=== PATIENT | female | born 1950 | race African-American/Black ===

== ENCOUNTER 2017-04-22 09:30 | Inpatient (IN) ==
[2017-04-22] MEDS ORDERED: GLUCAGON 1 MG VIAL IM PRN (09:42)
[2017-04-22] MEDS ORDERED: ONDANSETRON 4 MG/2 ML VIAL IV PRN (09:42)
[2017-04-22] MEDS ORDERED: DEXTROSE 50% 25 GM/50 ML SYRINGE IV PRN (09:42)
[2017-04-22] MEDS ORDERED: ZALEPLON 5 MG CAPSULE PO PRN (09:42)
[2017-04-22] MEDS ORDERED: DOCUSATE SODIUM 100 MG CAPSULE PO PRN (09:42)
--- NOTE | 2017-04-22 11:39 | Ultrasound Report ---
Venous Doppler ultrasound bilateral lower extremities Indication: Edema, pulmonary hypertension Comparison: None available Findings: No evidence of echogenic, noncompressible thrombus seen in the visualized veins of the extremities. Color Doppler venous waveform pattern is within normal limits. Impression: No evidence of deep venous thrombosis. Ultrasound images stored and captured. PROCEDURE INTERPRETED AT [facility] Final Report Signed by: Dr. Reji Jay
--- NOTE | 2017-04-22 12:53 | EKG Report ---
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
[2017-04-22] MEDS ORDERED: PNEUMOCOCCAL VACCINE (13 VALENT) 0.5 ML SYRINGE IM ONE (12:59)
--- NOTE | 2017-04-22 13:11 | XRay Report ---
2 view chest 04/22/2017 9:44 AM Indication: Shortness of breath Comparison: July 29, 2010 1855 hours Findings: Heart size is enlarged. Prominence of the central pulmonary vasculature and pulmonary outflow tracts. No acute osseous abnormalities. Visualized upper abdomen demonstrates no acute pathology. Impression: Findings suggest underlying pulmonary hypertension. No acute pulmonary process PROCEDURE INTERPRETED AT [facility] DEPARTMENT OF RADIOLOGY Final Report Signed by: Eugene Melchor
[2017-04-22 13:17] LABS: Basophils % 0.2 % (0.0-0.8); Eosinophils # 0.2 10*3/uL (0.0-0.87); Eosinophils % 2.4 % (0.00-10.9); Hematocrit 24.4 VOL% (35.7-47.0); Hemoglobin 7.8 GM/DL (12.0-16.0); Immature Granulocytes % 0.9 %; Immature Granulocytes Absolute 0.08 #; Lymphocytes # 1.4 10*3/uL (1.4-4.0); Lymphocytes % 15.2 % (21.3-54.2); Mean Corpuscular Hemoglobin 28 PG (27-34); Mean Corpuscular Volume 87.1 FL (87-102); Mean Platelet Volume 9.1 FL (9.6-12.0); Monocytes # 0.9 10*3/uL (0.11-0.8); Neutrophils # 6.4 10*3/uL (1.4-7.4); Neutrophils % 71.3 % (38.7-73.9); Platelet Count 249 T/CUMM (130-400); Red Cell Distribution Width 16.1 % (9.3-17.3)
--- NOTE | 2017-04-22 13:18 | CT Report ---
Exam: CT chest without intravenous contrast Exam date: 04/22/2017 1:09 PM Clinical History: 66 years Female pulmonary hypertension difficulty breathing Technique: Axial computed tomography images of the chest without intravenous contrast. The CT exam was performed using one or more of the following dose reduction techniques: Automated exposure control, adjustment of the mA and/or kV according to patient size, or use of iterative reconstruction technique. Comparison: No relevant prior studies available Findings: Lungs: No air trapping. Faint scattered subpleural reticular nodular densities. Pleural spaces: No pneumothorax. No significant effusion Heart: Four-chamber cardiomegaly Mediastinum: Intact. Normal trachea Bones/joints: Intact. No acute fracture. No dislocation. Soft tissues: Unremarkable Vasculature: Enlargement of the main pulmonary arteries and pulmonary trunk. Lymph nodes: No enlarged lymph nodes Visualized abdomen: Prior cholecystectomy Impression: 1. Four-chamber cardiomegaly 2. Enlargement of the pulmonary arteries and outflow tract suggesting underlying pulmonary hypertension PROCEDURE INTERPRETED AT [facility] DEPARTMENT OF RADIOLOGY Final Report Signed by: Eugene Melchor
[2017-04-22] MEDS: INSULIN REGULAR 100 UNIT/ML SUBCUT SCH ×3 (13:26→21:10)
[2017-04-22] MEDS: ENOXAPARIN 30 MG/0.3 ML SYRINGE SUBCUT SCH (13:38)
--- NOTE | 2017-04-22 13:52 | Nuclear Medicine Report ---
Nuclear medicine ventilation/perfusion scan Indication: Pulmonary hypertension Findings: Ventilation scan: The patient received 40.0 mCi of 90 9M technetium DTPA aerosolized. There is normal distribution of radiotracer in both lungs. Perfusion scan: Patient received 5.0 mCi of 90 9M technetium MAA intravenously. There is normal in distribution of radiotracer in both lungs without evidence of segmental or greater defects. Impression: Normal nuclear medicine ventilation perfusion scan. This indicates low probability for pulmonary embolism. PROCEDURE INTERPRETED AT [facility] DEPARTMENT OF RADIOLOGY Final Report Signed by: Dr. Reji Jay
[2017-04-22 14:06] LABS: Albumin 3.6 G/DL (3.4-5.0); Bilirubin,Total 0.6 MG/DL (0.2-1.0); Calcium 8.7 MG/DL (8.5-10.1); Potassium 4.1 MMOL/L (3.5-5.1); Risk Ratio 2.71; Thyroid Stimulating Hormone 2.19 uIU/ml (0.358-3.74); Total Protein 7.9 G/DL (6.4-8.3); VLDL CHOLESTEROL 13.6 MG/DL
[2017-04-22 14:58] LABS: Apearance,Urine CLEAR (Clear); Bilirubin,Urine Negative (Negative); Blood, Urine Negative (Negative); Glucose,Urine (UA) Negative (Negative); Ketones,Urine Negative (Negative); Mucus,Urine Occasional /LPF (Occasional); Nitrite,Urine Negative (Negative); Protein,Urine 100 MG/DL; RBC,Urine 1 /HPF (0-4); Squamous Epithelial Cell,Urine Occasional /HPF (0-10); Urine Color Straw (Yellow); Urine Urobilinogen < 2.0 EU/DL (0.2-1.0); WBC,Urine 2 /HPF (0-6)
--- NOTE | 2017-04-22 17:08 | Nephrology Consult Note ---
History of Present Illness Chief complaint: CRF History of present illness: Ms. Baker is a 66 year old female admitted with shortness of breath and intermittent chest pain. She denies orthopnea to me. She reports ERICKSON with little exertion. She has chronic renal failure. I saw her in July 2015 at which time her creatinine was 2.6. It had risen to 4.1 on follow-up in October 2016. She has missed other follow-up appointments. Currently she denies dysuria or hematuria. She has a history of renal cell carcinoma of the right kidney. She had cryoablation done at [facility] in 2013. She states recent follow-up at [facility] showed no recurrence Home Medications Medication Instructions Recorded Confirmed Type Calcium (Carb)/Vit D 600-400 1 tablet PO DAILY 04/22/17 04/22/17 History [Caltrate 600 + D] Cetirizine Tab [ZyrTEC Tab] 10 mg PO DAILY 04/22/17 04/22/17 History Docusate Sodium Cap [Colace Cap] 200 mg PO DAILY 04/22/17 04/22/17 History Garlic 1 each PO DAILY 04/22/17 04/22/17 History Minoxidil 2.5 mg PO DAILY 04/22/17 04/22/17 History Polyethylene Glycol Powder 17 gm PO BID 04/22/17 04/22/17 History [Miralax] amLODIPine [Norvasc] 10 mg PO DAILY 04/22/17 04/22/17 History cloNIDine [Clonidine 0.3 mg/24 hr 1 patch TRANSDERM Q7DAY 04/22/17 04/22/17 History Patch] hydrALAZINE TAB [Apresoline Tab] 50 mg PO BID 04/22/17 04/22/17 History Allergies Allergy/AdvReac Type Severity Reaction Status Date / Time codeine AdvReac Mild Vomiting Verified 04/22/17 11:55 Medical,Surgical,& Family Hx - Medical History Cardio: History of: Hypertension HEENT: History of: Dental Problems (Upper/Lower Dentures) Endocrine: History of: Dyslipidemia, Endocrine Problems (Hypoglycemia) Respiratory: History of: Obstructive Sleep Apnea, Pneumonia Renal: History of: Renal (Kidney) Cancer (Frozen at [facility]?) Gastrointestinal: History of: Diverticulitis/ Diverticulosis, GERD, Hemorrhoids , Polyps Musculoskeletal: History of: Back/Neck Problems, Osteoporosis, Musculoskeletal Problems (Spinal Stenosis) - Surgical History Thoracic Surgeries: Patient denies;: Organ Transplant HEENT Surgeries: Surgical HX of: Tonsilectomy & Adenoidectomy Abdominal Surgeries: Surgical HX of: Colonoscopy ( (Year Unknown)), EGD (, 2016, Polyp Removal) Reproductive Surgeries: Surgical HX of;: Hysterectomy, Tubal Ligation Orthopedic Surgeries: Surgical HX of;: Total Hip Replacement (Right Knee Replacement ([facility] - [facility])) - Family History Family History: Reports;: Family Diabetes (Father, Brother), Family Hypertension (Mother, Maternal Grandfather), Family Stroke (Mother) - Social History Smoking Status: Never smoker Frequency of Alcohol Use: None Type of Drug Use: None Review of Systems 12 point system: reviewed and no additional remarkable complaints except as stated Exam - Vital Signs Vital signs: Period Temp Pulse Resp BP Sys/Benoit Pulse Ox Last 24 Hr 97.3 F 100-100 20 170/80 99 Exam: Gen.: Alert and oriented x3. ENT: Pupils equal round reactive to light. EOMs intact. Mucous membranes moist. Neck: Supple. No JVD or bruit. Cardiovascular: Regular rate and rhythm. 2/6 systolic murmur Lungs: No rales or wheezes Abdomen: Soft. Nontender. Positive bowel sounds. No organomegaly Extremities: 1-2+ lower extremity edema Results - Labs CBC & BMP: 04/22/17 13:02 04/22/17 13:01 Assessment and Plan (1) Chronic kidney disease, stage V Status: Acute Assessment and plan: 66-year-old woman with: * CRF stage V. Renal function has slowly declined. She has no uremic symptoms. Recommend avoiding aggressive diuresis. * Renal cell carcinoma. Status post cryoablation 2013. She states MRI at [facility] last month was negative * Pulmonary hypertension. Echocardiogram shows EF 65% with pulmonary hypertension. CT chest confirms pulmonary hypertension. No pulmonary edema seen. She has systemic hypertension as well. Nifedipine would probably be a better option to treat both. I will not change this yet pending pulmonary consult input. * Anemia. This is likely contributing to ERICKSON. Erythropoietin level will be checked. Recommend transfusion * Hypertension * Chest pain. Evaluated by cardiology Current Visit: Yes (2) Anemia Status: Acute Current Visit: Yes (3) Chest pain Status: Acute Current Visit: Yes (4) Hypertension Status: Acute Current Visit: Yes (5) Pulmonary hypertension Status: Acute Current Visit: Yes (6) SULLY (obstructive sleep apnea) Status: Chronic Current Visit: Yes
--- NOTE | 2017-04-22 18:05 | Pulmonology Consult Note ---
Assessment and Plan (1) Pulmonary hypertension Status: Acute Assessment and plan: Echo indicates pulmonary hypertension with near normal left ventricular function. To see if she has an underlying cause for this or if it is primary. VQ lung scan was negative. Venous Dopplers negative. She has had an abnormal sleep study but I do not know the details of that. She is been evaluated for lupus and I do not know the results of that. She does have renal failure and her creatinine is up to 5 at this point. I will ask Dr. West to see her to follow-up on the possible sleep apnea. Will ask Dr. Fontaine to see her to follow-up on possible lupus. She will likely need a right heart cath to measure pressures directly. I will obtain PFTs to be sure she does not have some underlying chronic lung disease. Her high-resolution chest CT did not show any evidence of interstitial lung disease. Current Visit: Yes (2) Chronic renal insufficiency, stage IV (severe) Status: Chronic Assessment and plan: Creatinine of 5.3. Renal is following. Current Visit: Yes (3) SULLY (obstructive sleep apnea) Status: Chronic Assessment and plan: Has had a study for sleep apnea and reportedly does have it but it was recommended that she sleep with a tennis ball in the back of her shirt. This would suggest relatively mild sleep apnea which would be positional. Will ask Dr. West to review. Current Visit: Yes (4) Anemia Status: Acute Assessment and plan: Hematocrit 24. May be related to her renal failure. Current Visit: Yes (5) Hypertension Status: Acute Assessment and plan: On appropriate medications. Current Visit: Yes History of Present Illness Chief complaint: Shortness of breath History of present illness: Ms. Baker is a 66 year old female with chronic renal insufficiency and a creatinine around 3.5 who has developed worsening dyspnea on exertion. There are times that she gets short of breath just sitting up in the bed. She does have some upper chest pain associated with it. She has had an echocardiogram showing pulmonary hypertension with minor abnormalities in her aortic and mitral valves. Peak pulmonary artery pressure was estimated at 62. She is being studied for sleep apnea. She has had an initial study done in [place] and was told to sleep with a tennis ball in the back of her shirt. Apparently she has positional sleep apnea. She also was evaluated by Dr. Cohen in [place] for lupus. She is not sure whether she has it or not. She does have a daughter that has lupus. She does have degenerative arthritis. She has had a VQ lung scan that was normal. Venous Dopplers are negative. Nothing to indicate any pulmonary thromboembolic disease. She has normal oxygen saturation on room air. She has not had PFTs. She has never been a smoker. No history of asthma. Home Medications Medication Instructions Recorded Confirmed Type Calcium (Carb)/Vit D 600-400 1 tablet PO DAILY 04/22/17 04/22/17 History [Caltrate 600 + D] Cetirizine Tab [ZyrTEC Tab] 10 mg PO DAILY 04/22/17 04/22/17 History Docusate Sodium Cap [Colace Cap] 200 mg PO DAILY 04/22/17 04/22/17 History Garlic 1 each PO DAILY 04/22/17 04/22/17 History Minoxidil 2.5 mg PO DAILY 04/22/17 04/22/17 History Polyethylene Glycol Powder 17 gm PO BID 04/22/17 04/22/17 History [Miralax] amLODIPine [Norvasc] 10 mg PO DAILY 04/22/17 04/22/17 History cloNIDine [Clonidine 0.3 mg/24 hr 1 patch TRANSDERM Q7DAY 04/22/17 04/22/17 History Patch] hydrALAZINE TAB [Apresoline Tab] 50 mg PO BID 04/22/17 04/22/17 History Allergies Allergy/AdvReac Type Severity Reaction Status Date / Time codeine AdvReac Mild Vomiting Verified 04/22/17 11:55 12 point system: reviewed and no additional remarkable complaints except as stated - Constitutional Constitutional: Present: fatigue - Cardiovascular Cardiovascular: Present: chest pain at rest, dyspnea, dyspnea on exertion - Respiratory Respiratory: Present: dyspnea, dyspnea on exertion - Musculoskeletal Musculoskeletal: Present: arthralgias Exam (Pulmonay) H&P - Constitutional Vitals: Period Temp Pulse Resp BP Sys/Benoit Pulse Ox Last 24 Hr 97.0 F-97.3 F 99-100 20-20 147-170/68-80 99-99 Exam: Vital signs normal. O2 sat 99% on room air. Pupils react to light. Throat is clear. Neck supple no bruits. Chest sounds clear. Heart rate around 100. She does have a loud P2 and a soft murmur over her pulmonic valve. Abdomen is soft nontender no masses. Bowel sounds present. Extremities no clubbing cyanosis. Trace of edema. Calves nontender Medical,Surgical,& Family Hx - Medical History Cardio: History of: Hypertension HEENT: History of: Dental Problems (Upper/Lower Dentures) Endocrine: History of: Dyslipidemia, Endocrine Problems (Hypoglycemia) Respiratory: History of: Obstructive Sleep Apnea, Pneumonia Renal: History of: Renal (Kidney) Cancer (Frozen at [facility]?) Gastrointestinal: History of: Diverticulitis/ Diverticulosis, GERD, Hemorrhoids , Polyps Musculoskeletal: History of: Back/Neck Problems, Osteoporosis, Musculoskeletal Problems (Spinal Stenosis) - Surgical History Thoracic Surgeries: Patient denies;: Organ Transplant HEENT Surgeries: Surgical HX of: Tonsilectomy & Adenoidectomy Abdominal Surgeries: Surgical HX of: Colonoscopy ( (Year Unknown)), EGD (, 2016, Polyp Removal) Reproductive Surgeries: Surgical HX of;: Hysterectomy, Tubal Ligation Orthopedic Surgeries: Surgical HX of;: Total Hip Replacement (Right Knee Replacement ([facility] - [facility])) - Family History Family History: Reports;: Family Diabetes (Father, Brother), Family Hypertension (Mother, Maternal Grandfather), Family Stroke (Mother) - Social History Smoking Status: Never smoker Frequency of Alcohol Use: None Type of Drug Use: None Results - Labs CBC & BMP: 04/22/17 13:02 04/22/17 13:01 Lab Results: I have reviewed the past 24 hour labs - Diagnostic Findings Procedure: Chest x-ray: image reviewed by me (Lungs clear. Cardiomegaly. Sarah are prominent consistent with pulmonary hypertension.), CT: image reviewed by me (High-resolution CT shows cardiomegaly with clear lungs. Pulmonary arteries appear to be large. No contrast used because of her renal dysfunction)
--- NOTE | 2017-04-23 06:08 | Cardiology History & Physical ---
Beatriz Thacker April RN, am scribing for, and in the presence of, Nabil Kellogg MD 06:08. Assessment and Plan - Time spent with patient Time spent with patient: Greater than 30 minutes (1) Pulmonary hypertension Status: Acute Assessment and plan: Echo and chest x-ray suggestive of pulmonary hypertension. We have consulted pulmonary medicine Current Visit: Yes (2) Chronic renal insufficiency, stage IV (severe) Status: Chronic Assessment and plan: We will consult nephrology. Current Visit: Yes (3) SULLY (obstructive sleep apnea) Status: Chronic Current Visit: Yes (4) Anemia Status: Acute Assessment and plan: H&H today is 7.8 and 24.4. Current Visit: Yes (5) Hypertension Status: Acute Assessment and plan: Blood pressure is elevated at this time at 170/80. 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 Baker is a 66 year old female who was first seen by Dr. Madsen today. She was referred to him by Dr. Ortega for chest pressure and severe dyspnea on exertion has had a severe decline in her functional status. 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 She has a history of chronic renal failure, anemia, hypertension, sleep apnea ( does not use CPAP), and diverticulitis. Surgical history includes kidney biopsy , tonsillectomy, appendectomy, tubal ligation, cholecystectomy, right knee replacement, bilateral carpal tunnel, and hysterectomy. Family history is positive for mother with stroke and hypertension and father with diabetes. She reports she is a lifetime non-smoker. She reports she has been short of breath for a while but this is gotten worse over the last several weeks. This is brought on by any amount of exertion, it will improve if she rests. She also reports having 2 pillow orthopnea. For the last 2 weeks she has been having palpitations and chest pain. She describes the chest pain as a soreness in the center of her chest. She says it is worse with activity and resting lessons it, but it does not completely alleviate it. She denies any radiation to her back jaw or arms. The pain is reproducible. When the pain is at its worst she rates it a 10 on a scale of 1- 10. She also says she has been having some lower extremity edema for the last week or so. EKG showed sinus rhythm heart rate of 93. Echo done in Dr. Madsen' s office today showed ejection fraction of 65% and severe pulmonary hypertension with an estimated pulmonary artery systolic pressure estimated at 62. Chest x-ray and CT of the chest suggested underlying portal hypertension with no acute pulmonary process. Venous Doppler ultrasound was negative for DVT of either extremity. She has had a nuclear lung scan, those results are not back at this time. Blood pressure on admission was elevated at 170/80. Significant labs from Dr. Ortega's office included a creatinine of 5.2 and hemoglobin of 9.9. The only lab done today that is back at this time is her CBC. Her H&H is 7.8 and 24.4. At this time she is resting in bed in no acute distress. She denies any shortness of breath. She is complaining of some chest soreness, but stating it is a 7 on a scale of 1-10 at this time. She denies any palpitations or dizziness currently. She has 2+ pitting edema to her bilateral lower extremities. I have reviewed this case with Ana Henderson RN and agree with the evaluation and plans as outlined in document above. Home Medications Medication Instructions Recorded Confirmed Type Calcium (Carb)/Vit D 600-400 1 tablet PO DAILY 04/22/17 04/22/17 History [Caltrate 600 + D] Cetirizine Tab [ZyrTEC Tab] 10 mg PO DAILY 04/22/17 04/22/17 History Docusate Sodium Cap [Colace Cap] 200 mg PO DAILY 04/22/17 04/22/17 History Garlic 1 each PO DAILY 04/22/17 04/22/17 History Minoxidil 2.5 mg PO DAILY 04/22/17 04/22/17 History Polyethylene Glycol Powder 17 gm PO BID 04/22/17 04/22/17 History [Miralax] amLODIPine [Norvasc] 10 mg PO DAILY 04/22/17 04/22/17 History cloNIDine [Clonidine 0.3 mg/24 hr 1 patch TRANSDERM Q7DAY 04/22/17 04/22/17 History Patch] hydrALAZINE TAB [Apresoline Tab] 50 mg PO BID 04/22/17 04/22/17 History Allergies Allergy/AdvReac Type Severity Reaction Status Date / Time codeine AdvReac Mild Vomiting Verified 04/22/17 11:55 - Constitutional Constitutional: Present: as per HPI - EENT Eyes: Present: requires corrective lense. Absent: blurry vision Ears: Absent: decreased hearing, ear pain, tinnitus Nose, mouth and throat: Present: headache(s), neck pain. Absent: dysphagia, epistaxis - Cardiovascular Cardiovascular: Present: chest pain at rest, chest pain with activity, dyspnea on exertion, edema, orthopnea, palpitations. Absent: diaphoresis, dyspnea, radiating jaw, neck or arm pain, lightheadedness - Respiratory Respiratory: Present: cough, dyspnea on exertion. Absent: dyspnea, hemoptysis, wheezing - Gastrointestinal Gastrointestinal: Present: constipation. Absent: abdominal pain, diarrhea, hematemesis, hematochezia, melena, nausea, vomiting - Genitourinary Genitourinary: Absent: dysuria, hematuria - Musculoskeletal Musculoskeletal: Present: limited range of motion, muscle weakness. Absent: back pain - Neurological Neurological: Present: abnormal gait, headache(s). Absent: dizziness, frequent falls, syncope - Psychiatric Psychiatric: Absent: anxiety, depression - Endocrine Endocrine: Present: fatigue - Hematologic/Lymphatic Hematologic/Lymphatic: Present: easy bruising. Absent: easy bleeding Medical,Surgical,& Family Hx - Medical History Cardio: History of: Hypertension HEENT: History of: Dental Problems (Upper/Lower Dentures) Endocrine: History of: Dyslipidemia, Endocrine Problems (Hypoglycemia) Respiratory: History of: Obstructive Sleep Apnea, Pneumonia Renal: History of: Renal (Kidney) Cancer (Frozen at [facility]?) Gastrointestinal: History of: Diverticulitis/ Diverticulosis, GERD, Hemorrhoids , Polyps Musculoskeletal: History of: Back/Neck Problems, Osteoporosis, Musculoskeletal Problems (Spinal Stenosis) - Surgical History Thoracic Surgeries: Surgical HX of;: Kidney (Renal Surgery) (Kidney biopsy) HEENT Surgeries: Surgical HX of: Tonsilectomy & Adenoidectomy Abdominal Surgeries: Surgical HX of: Appendectomy, Cholecystectomy, Colonoscopy ( (Year Unknown)), EGD (, 2016, Polyp Removal) Reproductive Surgeries: Surgical HX of;: Hysterectomy, Tubal Ligation Orthopedic Surgeries: Surgical HX of;: Total Hip Replacement (Right Knee Replacement ([facility] - [place])), Total Knee Replacement (Right) Additional Surgical History: Bilateral carpal tunnel - Family History Family History: Reports;: Family Diabetes (Father, Brother), Family Hypertension (Mother, Maternal Grandfather), Family Stroke (Mother) - Social History Smoking Status: Never smoker Have you smoked in the last 12 months: No Frequency of Alcohol Use: None Type of Drug Use: None Lives With:: Alone Functional capacity: uses cane/walker Cardiology Physical Exam - Constitutional Vitals: Vital Signs Temp Pulse Resp BP Pulse Ox 97.3 F L 100 H 20 170/80 99 04/22/17 11:45 04/22/17 11:57 04/22/17 11:45 04/22/17 11:45 04/22/17 11:45 Intake and Output 04/21/17 04/22/17 04/22/17 22:59 06:59 14:59 Other: Weight 210 lb 8 oz Patient Weight 04/23/17 06:59 Weight 210 lb 8 oz General appearance: no acute distress, over weight - Head Head exam: Absent: abrasion, contusion, hematoma, laceration - Eye Eye exam: Present: EOMI. Absent: periorbital swelling, laceration to eyelids Pupils: Present: OG - Neck Neck exam: Absent: tenderness - Respiratory Respiratory exam: Present: clear to auscultation bilaterally, chest wall tenderness. Absent: accessory muscle use - Cardiovascular Cardiovascular exam: Absent: carotid bruit, JVD - GI/Abdominal GI/Abdominal exam: Present: normal bowel sounds, soft. Absent: distended, tenderness - Extremities Exam Extremities exam: Present: edema (2+ pitting edema to bilateral lower extremities) - Neurological Exam Neurological exam: Present: alert, oriented X3 - Psychiatric Psychiatric exam: Present: normal affect, normal mood - Skin Skin exam: Present: warm, dry Result/EKG - Labs CBC & BMP: 04/22/17 13:02 04/22/17 13:01 Lab Results: I have reviewed the past 24 hour labs Labs: Laboratory Results - last 24 hr 04/22/17 13:02 WBC 9.0 RBC 2.80 L Hgb 7.8 L Hct 24.4 L MCV 87.1 MCH 28 MCHC 32.0 RDW 16.1 Plt Count 249 MPV 9.1 L Neut % (Auto) 71.3 Lymph % (Auto) 15.2 L Iroquois % (Auto) 10.0 Eos % (Auto) 2.4 Baso % (Auto) 0.2 Neut # (Auto) 6.4 Lymph # (Auto) 1.4 Iroquois # (Auto) 0.9 H Eos # (Auto) 0.2 Baso # (Auto) 0.0 Immature Gran % 0.9 Nucleated RBC % 0.0 Immature Gran # 0.08 Nucleated RBCs # 0.00 Immature Plt Fraction 0.0 - Diagnostic Findings Procedure: Chest x-ray: report reviewed by me, CT - chest: report reviewed by me - EKG EKG results: interpreted by me EKG shows: sinus rhythm Valdez Thacker Wesley, MD, personally performed the services described in this documentation, ascribed by Ana Henderson RN in my presence, and it is both accurate and complete [id number] .
[2017-04-23 06:10] LABS: Calcium 7.9 MG/DL (8.5-10.1); Magnesium 2.5 MG/DL (1.8-2.4); Osmolality,Calculated 308.7 MOS/KG (273-304); Potassium 4.2 MMOL/L (3.5-5.1)
--- NOTE | 2017-04-23 07:40 | EKG Report ---
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
--- NOTE | 2017-04-23 08:33 | Pulmonology Progress Note ---
Pulmonary - PN: Subj Interval history: 66-year-old black female with pulmonary hypertension. We are looking for underlying causes versus primary disease. She has had a sleep study and evaluation for lupus recently. Need final decisions on both of these. Consultants pending. PFTs have been ordered. VQ lung scan was negative. Venous Dopplers negative. Has renal failure with creatinine of about 5.5. This would make catheterization with any dye involved difficult but still could get a right heart cath to measure pressures and test for responsiveness. Exam (Progress Note) - Constitutional Vitals: Period Temp Pulse Resp BP Sys/Benoit Pulse Ox Last 24 Hr 97.0 F-99.8 F 94-100 18-20 138-178/65-80 97-100 Exam: Patient's alert sitting up. Vital signs are normal. Pupils react to light. Throat is clear. Neck supple no bruits. Chest sounds clear. Heart normal rate and rhythm. P2 is slightly loud and I do hear a pulmonic systolic and diastolic murmur. Abdomen soft nontender no masses. Extremities no clubbing cyanosis, trace edema. Results - Labs CBC & BMP: 04/22/17 13:02 04/23/17 04:12 Lab Results: I have reviewed the past 24 hour labs Assessment and Plan (1) Pulmonary hypertension Status: Acute Assessment and plan: Echo indicates pulmonary hypertension with near normal left ventricular function. To see if she has an underlying cause for this or if it is primary. VQ lung scan was negative. Venous Dopplers negative. She has had an abnormal sleep study but I do not know the details of that. She is been evaluated for lupus and I do not know the results of that. She does have renal failure and her creatinine is up to 5 at this point. I will ask Dr. West to see her to follow-up on the possible sleep apnea. Will ask Dr. Fontaine to see her to follow-up on possible lupus. She will likely need a right heart cath to measure pressures directly. I will obtain PFTs to be sure she does not have some underlying chronic lung disease. Her high-resolution chest CT did not show any evidence of interstitial lung disease. 04/23/2017 needs follow-up of studies outlined above. Likely will need right heart cath at some point. Current Visit: Yes (2) Chronic renal insufficiency, stage IV (severe) Status: Chronic Assessment and plan: Creatinine of 5.3. Renal is following. Current Visit: Yes (3) SULLY (obstructive sleep apnea) Status: Chronic Assessment and plan: Has had a study for sleep apnea and reportedly does have it but it was recommended that she sleep with a tennis ball in the back of her shirt. This would suggest relatively mild sleep apnea which would be positional. Will ask Dr. West to review. 04/23/2017 Dr. West to see today. Patient had study in [facility] and was told to sew a tennis ball in the back of her night shirt. Appears to have mild SULLY based on that report. Current Visit: Yes (4) Anemia Status: Acute Assessment and plan: Hematocrit 24. May be related to her renal failure. Current Visit: Yes (5) Hypertension Status: Acute Assessment and plan: On appropriate medications. 04/23/2017 blood pressure controlled. Current Visit: Yes
--- NOTE | 2017-04-23 10:11 | Gastrointestinal Consult Note ---
<Ladonna Morejon - Last Filed: 04/23/17 10:05> Assessment and Plan (1) Anemia Status: Acute Assessment and plan: 04/23-Admitted with SOB and chest pain with findings of anemia, hx of CKD. No prior transfusions in the past. HH 03/02 w/o overt bleeding. Check stools for occult blood. Recheck HH today. Plan and addendum to follow by Dr Garduno. Current Visit: Yes History of Present Illness Chief complaint: Anemia History of present illness: Ms. Baker is a 66 year old female who was admitted to the hospital with onset of SOB and chest pain. Pt has a history of sleep apnea, pulmonary HTN, stage V kidney disease and renal cell carcinoma in 2013. Pt states she was in her usual state of health until yesterday when she began having increase in her SOB with exertion and reports of chest pain. She has never had a cardiac evaluation in the past and denied any prior known cardiac disease. She states she has had SOB however it has worsened over the last several weeks. She states the chest pain seemed to be exacerbated by exertion and denies any other known associated factors. On admission, she was also found to be anemic with HH 03/02. She states she has been anemic in the past and has been treated for this with oral iron but has not required a transfusion with the exception of post operatively. She denies any melena but states she does have some bright red blood with her stools at times and felt this was related to her hemorrhoids. Denies any abdominal pain, nausea or vomiting. She denies any recent weight loss. Denies any fever or chills. She denies any anticoagulant use or NSAID use. She denies any dysphagia, worsening GERD or dyspepsia. She states she has had prior endoscopy done in the past by Dr Garduno at the endoscopic clinic but cannot recall the results other than no history of PUD. She does recall having diverticulosis on her colonoscopy. Home Medications Medication Instructions Recorded Confirmed Type Calcium (Carb)/Vit D 600-400 1 tablet PO DAILY 04/22/17 04/22/17 History [Caltrate 600 + D] Cetirizine Tab [ZyrTEC Tab] 10 mg PO DAILY 04/22/17 04/22/17 History Docusate Sodium Cap [Colace Cap] 200 mg PO DAILY 04/22/17 04/22/17 History Garlic 1 each PO DAILY 04/22/17 04/22/17 History Minoxidil 2.5 mg PO DAILY 04/22/17 04/22/17 History Polyethylene Glycol Powder 17 gm PO BID 04/22/17 04/22/17 History [Miralax] amLODIPine [Norvasc] 10 mg PO DAILY 04/22/17 04/22/17 History cloNIDine [Clonidine 0.3 mg/24 hr 1 patch TRANSDERM Q7DAY 04/22/17 04/22/17 History Patch] hydrALAZINE TAB [Apresoline Tab] 50 mg PO BID 04/22/17 04/22/17 History Senna Tab [Senokot] 17.2 mg PO DAILY 04/23/17 04/23/17 History Allergies Allergy/AdvReac Type Severity Reaction Status Date / Time codeine AdvReac Mild Vomiting Verified 04/22/17 11:55 Medical,Surgical,& Family Hx - Medical History Cardio: History of: Hypertension HEENT: History of: Dental Problems (Upper/Lower Dentures) Endocrine: History of: Dyslipidemia, Endocrine Problems (Hypoglycemia) Respiratory: History of: Obstructive Sleep Apnea, Pneumonia Renal: History of: Renal (Kidney) Cancer ([facility] at [facility] Gastrointestinal: History of: Diverticulitis/ Diverticulosis, GERD, Hemorrhoids , Polyps Musculoskeletal: History of: Back/Neck Problems, Osteoporosis, Musculoskeletal Problems (Spinal Stenosis) - Surgical History Thoracic Surgeries: Surgical HX of;: Kidney (Renal Surgery) (Kidney biopsy) Patient denies;: Organ Transplant HEENT Surgeries: Surgical HX of: Tonsilectomy & Adenoidectomy Abdominal Surgeries: Surgical HX of: Appendectomy, Cholecystectomy, Colonoscopy ( (Year Unknown)), EGD (, 2016, Polyp Removal) Reproductive Surgeries: Surgical HX of;: Hysterectomy, Tubal Ligation Orthopedic Surgeries: Surgical HX of;: Total Hip Replacement (Right Knee Replacement ([facility] [place])), Total Knee Replacement (Right) - Family History Family History: Reports;: Family Diabetes (Father, Brother), Family Hypertension (Mother, Maternal Grandfather), Family Stroke (Mother) - Social History Smoking Status: Never smoker Frequency of Alcohol Use: None Type of Drug Use: None 12 point system: reviewed and no additional remarkable complaints except as stated - Constitutional Constitutional: Present: as per HPI - EENT Eyes: Present: as per HPI Ears: Present: as per HPI Nose, mouth and throat: Present: as per HPI - Cardiovascular Cardiovascular: Present: as per HPI, chest pain at rest, dyspnea on exertion - Respiratory Respiratory: Present: as per HPI - Gastrointestinal Gastrointestinal: Present: as per HPI, hematochezia - Genitourinary Genitourinary: Present: as per HPI - Musculoskeletal Musculoskeletal: Present: as per HPI - Neurological Neurological: Present: as per HPI - Psychiatric Psychiatric: Present: as per HPI - Endocrine Endocrine: Present: as per HPI - Hematologic/Lymphatic Hematologic/Lymphatic: Present: as per HPI Exam - Constitutional Vitals: Period Temp Pulse Resp BP Sys/Benoit Pulse Ox Last 24 Hr 97.0 F-99.8 F 94-100 18-20 138-178/65-80 97-100 General appearance: normal weight, no acute distress - Head Head exam: Present: normal inspection, normocephalic - Eye Eye exam: Present: other (lids and conjunctiva unremarkable). Absent: scleral icterus - ENT ENT exam: Present: normal exam, normal oropharynx - Neck Neck exam: Present: normal inspection - Respiratory Respiratory exam: Present: clear to auscultation bilaterally. Absent: rales, rhonchi, wheezes - Cardiovascular Cardiovascular exam: Present: regular rate and rhythm. Absent: diastolic murmur , JVD, systolic murmur - GI/Abdominal GI/Abdominal exam: Present: normal bowel sounds, soft. Absent: ascites, distended, mass, organomegaly, tenderness - Extremities Exam Extremities exam: Present: normal inspection, full ROM - Back Exam Back exam: Present: normal inspection - Neurological Exam Neurological exam: Present: alert, oriented X3 - Psychiatric Psychiatric exam: Present: normal affect, normal mood - Skin Skin exam: Present: normal color, warm, dry Results - Labs CBC & BMP: 04/22/17 13:02 04/23/17 04:12 Lab Results: I have reviewed the past 24 hour labs <Cain Garduno - Last Filed: 04/23/17 21:35> History of Present Illness Chief complaint: 3030 History of present illness: Ms. Baker is a 66 year old female Exam - Constitutional Vitals: Period Temp Pulse Resp BP Sys/Benoit Pulse Ox Last 24 Hr 97.1 F-99.8 F 74-103 18-20 123-183/57-84 94-100 Results - Labs CBC & BMP: 04/23/17 10:23 04/23/17 04:12
[2017-04-23] MEDS: FUROSEMIDE 40 MG TABLET PO SCH (10:24)
[2017-04-23] MEDS: PANTOPRAZOLE 40 MG TABLET PO SCH (10:24)
[2017-04-23] MEDS ORDERED: SODIUM CHLORIDE 0.9% 250 ML IV PRN (10:24)
[2017-04-23] MEDS: INSULIN REGULAR 100 UNIT/ML SUBCUT SCH ×4 (10:27→20:57)
[2017-04-23 10:35] LABS: Basophils % 0.1 % (0.0-0.8); Eosinophils # 0.2 10*3/uL (0.0-0.87); Eosinophils % 2.9 % (0.00-10.9); Hematocrit 23.7 VOL% (35.7-47.0); Hemoglobin 7.6 GM/DL (12.0-16.0); Immature Granulocytes % 0.8 %; Immature Granulocytes Absolute 0.06 #; Lymphocytes # 1.4 10*3/uL (1.4-4.0); Lymphocytes % 18.9 % (21.3-54.2); Mean Corpuscular HGB Conc 32.1 GM/DL (32-36); Mean Corpuscular Hemoglobin 28 PG (27-34); Mean Corpuscular Volume 88.1 FL (87-102); Mean Platelet Volume 8.9 FL (9.6-12.0); Monocytes # 0.9 10*3/uL (0.11-0.8); Monocytes % 11.5 % (1.7-12.7); Neutrophils % 65.8 % (38.7-73.9); Platelet Count 216 T/CUMM (130-400); Red Blood Count 2.69 MC/CUMM (3.8-5.5); Red Cell Distribution Width 16.1 % (9.3-17.3); White Blood Count 7.6 T/CUMM (4-12)
[2017-04-23 10:59] LABS: Folate 21.5 NG/ML (5.4-24.0); Vitamin B12 380 PG/ML (211-911)
--- NOTE | 2017-04-23 11:05 | XRay Report ---
XR sinus Indication: Sinus congestion, cough Findings: No air-fluid levels or abnormal soft tissue density are present within the sinuses. No fracture is identified. Sinuses appear normally formed. No other abnormality seen. Impression: No evidence of sinus abnormality demonstrated. PROCEDURE INTERPRETED AT [facility] OF [facility]OLOG[facility] Final Report Signed by: Dr. Reji Jay
[2017-04-23 11:39] LABS: Sedimentation Rate-Westergren 126 MM/HR (0-30)
[2017-04-23] MEDS: DOCUSATE SODIUM 100 MG CAPSULE PO SCH (11:42)
[2017-04-23] MEDS: amLODIPine 10 MG TABLET PO SCH (11:42)
[2017-04-23] MEDS: CETIRIZINE 10 MG TABLET PO SCH (11:42)
[2017-04-23] MEDS: CALCIUM (CARBONATE)/VITAMIN D 600 MG-400 UNIT TABLET PO SCH (11:42)
[2017-04-23] MEDS: GARLIC PO SCH (11:43)
[2017-04-23] MEDS: POLYETHYLENE GLYCOL POWDER 17 GM PACK PO SCH ×2 (11:43→20:57)
--- NOTE | 2017-04-23 13:05 | Sleep Medicine Consult ---
Assessment and Plan (1) SULLY (obstructive sleep apnea) Status: Chronic Assessment and plan: It sounds as though by her earlier evaluation that she had only positional sleep apnea and did not qualify for CPAP. I will try to get a copy of that interpretation to review those results. I do think she needs to be reevaluated given her current medical situation. We will start with home sleep testing tonight. Thank you for this consult. Current Visit: Yes (2) Pulmonary hypertension Status: Acute Assessment and plan: It would be unusual to see severe pulmonary hypertension with obstructive sleep apnea alone, particularly mild sleep apnea. I would certainly consider other causes though it does not appear pulmonary or cardiac issues are contributory. Severe pulmonary hypertension is usually only seen with obstructive sleep apnea in conjunction with other disorders of chronic hypoxic lung disease. Current Visit: Yes (3) Hypertension Status: Acute Assessment and plan: The prevalence rate for obstructive sleep apnea patients with hypertension is 35 %. That rate can be as high as 80% in patients who require 4 or more medications for blood pressure control. Current Visit: Yes History of Present Illness Chief complaint: Sleep apnea History of present illness: Ms. Baker is a 66 year old female admitted with chest pain and found to have severe pulmonary hypertension with pulmonary artery pressures in the low 60s. She had normal LV function and had no evidence of thromboembolic lung disease. Pulmonary medicine and cardiology have both seen her. She had no evidence of interstitial lung disease on CT of the chest. She did have sleep study done over a year ago in [place] by Dr. Boston. She apparently had positional sleep apnea and was prescribed positional training with a tennis ball safety pinned into her pajama top between her shoulder blades. This is utilized to help her sleep on her side and not her back. She states that she does continue to snore and her states that her symptoms of snoring and abnormal breathing during sleep have gotten worse in the past year. She recently developed problems with lower extremity swelling and shortness of breath in addition to her chest pain. She has had issues with sleepiness in the past but not so much in recent weeks. She has had nocturia as well but this has improved in recent weeks as well. Home Medications Medication Instructions Recorded Confirmed Type Calcium (Carb)/Vit D 600-400 1 tablet PO DAILY 04/22/17 04/22/17 History [Caltrate 600 + D] Cetirizine Tab [ZyrTEC Tab] 10 mg PO DAILY 04/22/17 04/22/17 History Docusate Sodium Cap [Colace Cap] 200 mg PO DAILY 04/22/17 04/22/17 History Garlic 1 each PO DAILY 04/22/17 04/22/17 History Minoxidil 2.5 mg PO DAILY 04/22/17 04/22/17 History Polyethylene Glycol Powder 17 gm PO BID 04/22/17 04/22/17 History [Miralax] amLODIPine [Norvasc] 10 mg PO DAILY 04/22/17 04/22/17 History cloNIDine [Clonidine 0.3 mg/24 hr 1 patch TRANSDERM Q7DAY 04/22/17 04/22/17 History Patch] hydrALAZINE TAB [Apresoline Tab] 50 mg PO BID 04/22/17 04/22/17 History Senna Tab [Senokot] 17.2 mg PO DAILY 04/23/17 04/23/17 History Allergies Allergy/AdvReac Type Severity Reaction Status Date / Time codeine AdvReac Mild Vomiting Verified 04/22/17 11:55 Review of systems: Otherwise unremarkable from a sleep medicine standpoint. Exam (Pulmonay) H&P - Constitutional Vitals: Period Temp Pulse Resp BP Sys/Benoit Pulse Ox Last 24 Hr 97.0 F-99.8 F 87-100 18-20 138-178/65-83 97-100 Exam: She is alert and responsive in no acute distress. Pupils equal round reactive to light and accommodation. Extraocular movements intact. Oropharynx with a class III Mallampati exam. Neck supple without adenopathy or thyromegaly. No supraclavicular adenopathy is noted. Chest with symmetrical breath sounds without focal wheeze or rhonchi. Cardiac exam reveals a regular rhythm without murmur or gallop. Abdomen soft nontender without palpable hepatosplenomegaly or mass. Extremities reveal 1+ pitting edema bilaterally. Neurologically, she is grossly intact. She moves all extremities with good strength and answers all questions appropriately. Medical,Surgical,& Family Hx - Medical History Cardio: History of: Hypertension HEENT: History of: Dental Problems (Upper/Lower Dentures) Endocrine: History of: Dyslipidemia, Endocrine Problems (Hypoglycemia) Respiratory: History of: Obstructive Sleep Apnea, Pneumonia Renal: History of: Renal (Kidney) Cancer ([facility] at [facility]?) Gastrointestinal: History of: Diverticulitis/ Diverticulosis, GERD, Hemorrhoids , Polyps Musculoskeletal: History of: Back/Neck Problems, Osteoporosis, Musculoskeletal Problems (Spinal Stenosis) - Surgical History Thoracic Surgeries: Surgical HX of;: Kidney (Renal Surgery) (Kidney biopsy) Patient denies;: Organ Transplant HEENT Surgeries: Surgical HX of: Tonsilectomy & Adenoidectomy Abdominal Surgeries: Surgical HX of: Appendectomy, Cholecystectomy, Colonoscopy ( (Year Unknown)), EGD (, 2016, Polyp Removal) Reproductive Surgeries: Surgical HX of;: Hysterectomy, Tubal Ligation Orthopedic Surgeries: Surgical HX of;: Total Hip Replacement (Right Knee Replacement ([facility] [place])), Total Knee Replacement (Right) - Family History Family History: Reports;: Family Diabetes (Father, Brother), Family Hypertension (Mother, Maternal Grandfather), Family Stroke (Mother) - Social History Smoking Status: Never smoker Frequency of Alcohol Use: None Type of Drug Use: None Results - Labs CBC & BMP: 04/23/17 10:23 04/23/17 04:12 Lab Results: I have reviewed the past 24 hour labs Labs: Has normal TSH but profoundly anemic and does have chronic renal failure.
--- NOTE | 2017-04-23 13:44 | Cardiology Progress Note ---
Beatriz Thacker April RN, am scribing for, and in the presence of, Nabil Kellogg MD 13:44. Assessment and Plan (1) Pulmonary hypertension Status: Acute Assessment and plan: Echo and chest x-ray suggestive of pulmonary hypertension. Pulmonary medicine is following. Current Visit: Yes (2) Chronic renal insufficiency, stage IV (severe) Status: Chronic Assessment and plan: Creatinine is 5.5 today. Nephrology is following. Current Visit: Yes (3) SULLY (obstructive sleep apnea) Status: Chronic Current Visit: Yes (4) Anemia Status: Acute Assessment and plan: H&H today is 7.6 and 23.7. We will get an anemia profile and transfuse 2 units of packed red blood cells today. GI has been consulted to evaluate. Current Visit: Yes (5) Hypertension Status: Acute Assessment and plan: Blood pressures have improved. Current Visit: Yes (6) Chest pain Status: Acute Current Visit: Yes Cardiology - PN: Subj Interval history: Sparmaker: Dr. Madsen Summary: Ms. Baker is a 66 year old female who was first seen by Dr. Madsen today. She was referred to him by Dr. Ortega for chest pressure and severe dyspnea on exertion has had a severe decline in her functional status. She has never seen a solution director in the past denies ever having had a heart cath or stress test. She has a history of chronic renal failure, anemia, hypertension, sleep apnea (does not use CPAP), and diverticulitis. She reports she has been short of breath for a while but this is gotten worse over the last several weeks. This is brought on by any amount of exertion, it will improve if she rests. She also reports having 2 pillow orthopnea. For the last 2 weeks she has been having palpitations and chest pain. She describes the chest pain as a soreness in the center of her chest. She says it is worse with activity and resting lessons it, but it does not completely alleviate it. She denies any radiation to her back jaw or arms. The pain is reproducible. When the pain is at its worst she rates it a 10 on a scale of 1-10. She also says she has been having some lower extremity edema for the last week or so. EKG showed sinus rhythm heart rate of 93. Echo done in Dr. Madsen's office today showed ejection fraction of 65% and severe pulmonary hypertension with an estimated pulmonary artery systolic pressure estimated at 62. Chest x-ray and CT of the chest suggested underlying portal hypertension with no acute pulmonary process. Venous Doppler ultrasound was negative for DVT of either extremity. She has had a nuclear lung scan, those results are not back at this time. Blood pressure on admission was elevated at 170/80. Significant labs from Dr. Ortega' s office included a creatinine of 5.2 and hemoglobin of 9.9. The only lab done today that is back at this time is her CBC. Her H&H here is 7.8 and 24.4. Initial visit April 22, 2017: At this time she is resting in bed in no acute distress. She denies any shortness of breath. She is complaining of some chest soreness, but stating it is a 7 on a scale of 1-10 at this time. She denies any palpitations or dizziness currently. She has 2+ pitting edema to her bilateral lower extremities. April 23, 2017: Ms. Baker's only complaint this morning is of some sinus congestion and a cough. Will get sinus films to evaluate. Her pressures have improved overnight. O2 sat this morning was 97%. Creatinine continues to be elevated at 5.5 today. EKG this morning showed sinus rhythm with heart rate of 92. VQ lung scan done yesterday indicated low probability for pulmonary embolism. H&H this morning is 7.6 and 23.7. We will transfuse with 2 units of packed red blood cells today and get an anemia profile on her. We have consulted GI to evaluate this as well. I have discussed in detail the particulars of this case and I have examined the patient and reviewed the patient's chart both current and old. I was directly involved in the patient's evaluation and management and I completely agree with Ana Henderson RN regarding this patient's evaluation and treatment plan. Exam (Progress Note) - Constitutional Vitals: Period Temp Pulse Resp BP Sys/Benoit Pulse Ox Last 24 Hr 97.0 F-99.8 F 94-100 18-20 138-178/65-80 97-100 Exam: General appearance: no acute distress, over weight - Head Head exam: Absent: abrasion, contusion, hematoma, laceration - Eye Eye exam: Present: EOMI. Absent: periorbital swelling, laceration to eyelids Pupils: Present: OG - Neck Neck exam: Absent: tenderness - Respiratory Respiratory exam: Present: clear to auscultation bilaterally, chest wall tenderness. Absent: accessory muscle use - Cardiovascular Cardiovascular exam: Absent: carotid bruit, JVD - GI/Abdominal GI/Abdominal exam: Present: normal bowel sounds, soft. Absent: distended, tenderness - Extremities Exam Extremities exam: Present: edema (2+ pitting edema to bilateral lower extremities) - Neurological Exam Neurological exam: Present: alert, oriented X3 - Psychiatric Psychiatric exam: Present: normal affect, normal mood - Skin Skin exam: Present: warm, dry Result/EKG - Labs CBC & BMP: 04/23/17 10:23 04/23/17 04:12 Lab Results: I have reviewed the past 24 hour labs Labs: Laboratory Results - last 24 hr 04/22/17 04/22/17 04/22/17 13:01 13:01 13:02 WBC RBC Hgb Hct MCV MCH MCHC RDW Plt Count MPV Neut % (Auto) Lymph % (Auto) [place] % (Auto) Eos % (Auto) Baso % (Auto) Neut # (Auto) Lymph # (Auto) [place] # (Auto) Eos # (Auto) Baso # (Auto) Immature Gran % Nucleated RBC % Immature Gran # Nucleated RBCs # Immature Plt Fraction ESR Westergren 125 H Sodium 143 Potassium 4.1 Chloride 114 H Carbon Dioxide 17 L Anion Gap 16.1 H BUN 66 H Creatinine 5.30 H GFR Calculation 11 BUN/Creatinine Ratio 12.00 Glucose 68 L POC Glucose Calculated Osmolality 301.0 Calcium 8.7 Magnesium Total Bilirubin 0.60 AST 43 H ALT 87 H Alkaline Phosphatase 142 H Total Protein 7.9 Albumin 3.6 Globulin 4.3 H Albumin/Globulin Ratio 0.8 L Triglycerides 68 Cholesterol 247 H LDL Cholesterol 134.0 VLDL Cholesterol 13.6 HDL Cholesterol 91 H Heart Disease Risk Ratio 2.71 Free T4 1.04 TSH 3rd Generation 2.190 Urine Color Urine Appearance Urine pH Ur Specific [place] Urine Protein Urine Glucose (UA) Urine Ketones Urine Blood Urine Nitrate Urine Bilirubin Urine Urobilinogen Urine Leukocytes Urine RBC Urine WBC Ur Squamous Epith Cells Urine Mucus Ur Culture Indicated? JASEN Screen 04/22/17 04/22/17 04/22/17 13:02 13:02 13:30 WBC 9.0 RBC 2.80 L Hgb 7.8 L Hct 24.4 L MCV 87.1 MCH 28 MCHC 32.0 RDW 16.1 Plt Count 249 MPV 9.1 L Neut % (Auto) 71.3 Lymph % (Auto) 15.2 L [place] % (Auto) 10.0 Eos % (Auto) 2.4 Baso % (Auto) 0.2 Neut # (Auto) 6.4 Lymph # (Auto) 1.4 [place] # (Auto) 0.9 H Eos # (Auto) 0.2 Baso # (Auto) 0.0 Immature Gran % 0.9 Nucleated RBC % 0.0 Immature Gran # 0.08 Nucleated RBCs # 0.00 Immature Plt Fraction 0.0 ESR Westergren Sodium Potassium Chloride Carbon Dioxide Anion Gap BUN Creatinine GFR Calculation BUN/Creatinine Ratio Glucose POC Glucose Calculated Osmolality Calcium Magnesium Total Bilirubin AST ALT Alkaline Phosphatase Total Protein Albumin Globulin Albumin/Globulin Ratio Triglycerides Cholesterol LDL Cholesterol VLDL Cholesterol HDL Cholesterol Heart Disease Risk Ratio Free T4 TSH 3rd Generation Urine Color Straw Urine Appearance Clear Urine pH 5.0 Ur Specific [place] 1.010 Urine Protein 100 Urine Glucose (UA) Negative Urine Ketones Negative Urine Blood Negative Urine Nitrate Negative Urine Bilirubin Negative Urine Urobilinogen < 2.0 H Urine Leukocytes Negative Urine RBC 1 Urine WBC 2 Ur Squamous Epith Cells Occasional Urine Mucus Occasional Ur Culture Indicated? Not indicated JASEN Screen Negative (<1:160) 04/22/17 04/23/17 04/23/17 20:05 04:12 08:29 WBC RBC Hgb Hct MCV MCH MCHC RDW Plt Count MPV Neut % (Auto) Lymph % (Auto) [place] % (Auto) Eos % (Auto) Baso % (Auto) Neut # (Auto) Lymph # (Auto) [place] # (Auto) Eos # (Auto) Baso # (Auto) Immature Gran % Nucleated RBC % Immature Gran # Nucleated RBCs # Immature Plt Fraction ESR Westergren Sodium 145 Potassium 4.2 Chloride 115 H Carbon Dioxide 18 L Anion Gap 16.2 H BUN 74 H Creatinine 5.50 H GFR Calculation 10 BUN/Creatinine Ratio 13.00 Glucose 84 POC Glucose 112 H 113 H Calculated Osmolality 308.7 H Calcium 7.9 L Magnesium 2.5 H Total Bilirubin AST ALT Alkaline Phosphatase Total Protein Albumin Globulin Albumin/Globulin Ratio Triglycerides Cholesterol LDL Cholesterol VLDL Cholesterol HDL Cholesterol Heart Disease Risk Ratio Free T4 TSH 3rd Generation Urine Color Urine Appearance Urine pH Ur Specific [place] Urine Protein Urine Glucose (UA) Urine Ketones Urine Blood Urine Nitrate Urine Bilirubin Urine Urobilinogen Urine Leukocytes Urine RBC Urine WBC Ur Squamous Epith Cells Urine Mucus Ur Culture Indicated? JASEN Screen - Diagnostic Findings Procedure: Chest x-ray: report reviewed by me - EKG EKG results: interpreted by me EKG shows: sinus rhythm Valdez Thacker Wesley, MD, personally performed the services described in this documentation, ascribed by Ana Henderson RN in my presence, and it is both accurate and complete [id number] .
[2017-04-23] MEDS ORDERED: cloNIDine 0.1 MG TABLET PO PRN (14:26)
[2017-04-23] MEDS: ENOXAPARIN 30 MG/0.3 ML SYRINGE SUBCUT SCH (15:35)
--- NOTE | 2017-04-23 17:50 | Rheumatology Consultation ---
Assessment and Plan - Time spent with patient Time spent with patient: Greater than 30 minutes (1) Pulmonary hypertension Status: Acute Assessment and plan: Mrs. Baker a 66 Y AAF is admitted for chest pain and diagnosed with New onset Pulmonary artery hypertension. Blood work up done reported negative JASEN. She has biateral parotids glands enlarged and palpable. She has symptoms of fatigue , skin rash and mild GERD. Her new onset symptoms of Pulmonary artery hypertensinon does not seems very suggestive of any autoimmune connective tissue diseases but I would prefer to evaluate her for condiitions like Systemic Lupus erythematous, Sjogren's Syndrome, Scleroderma, auotimmune Myositis and IgG4-Related disease. I will decide further based on her blood work up results. Discussed with patient and her Husaband in details my assessement and plan. I am very happy and thankful to primary team to provide me opportunity to participate in patient management. Current Visit: Yes (2) Chronic renal insufficiency, stage IV (severe) Status: Chronic Current Visit: Yes History of Present Illness - Data of Consult Patient: known to practice within the last 3 years Consult date: 04/23/17 - Consult Narrative Reason for consult: PULMONARY ARTERY HYPERTENSION 2* AUTOIMMUNE CONNECTIVE TISSUE DISEASE History of present illness: Ms. Baker is a 66 year old female is admitted for new onset chest pain, mild to moderate intensity, gets worse by exertion. Initial work up including EKG and troponin were WNL. TTE reported significantly elevated Pulmonary artery pressure and is consistent with Pulmonary artery hypertension. Further evaluation include VQ scan was negative for PE. She also has CKD stage IV which was evaluated by Machine Maintenance Supervisor. According to patient She has skin rash involve her arms and legs, which is hyperpigmented lesions associated with pruritis, intermittent and resolves its own. she denies dry eyes, dry mouth, hair loss, oral sores dry mouth, cough, abdominal pain, diarrhea, weight loss, joints pain and Raynaud's. CC: Meena Madsen, DO - Home Medications and Allergies Home Medications: Home Medications Medication Instructions Recorded Confirmed Type Calcium (Carb)/Vit D 600-400 1 tablet PO DAILY 04/22/17 04/22/17 History [Caltrate 600 + D] Cetirizine Tab [ZyrTEC Tab] 10 mg PO DAILY 04/22/17 04/22/17 History Docusate Sodium Cap [Colace Cap] 200 mg PO DAILY 04/22/17 04/22/17 History Garlic 1 each PO DAILY 04/22/17 04/22/17 History Minoxidil 2.5 mg PO DAILY 04/22/17 04/22/17 History Polyethylene Glycol Powder 17 gm PO BID 04/22/17 04/22/17 History [Miralax] amLODIPine [Norvasc] 10 mg PO DAILY 04/22/17 04/22/17 History cloNIDine [Clonidine 0.3 mg/24 hr 1 patch TRANSDERM Q7DAY 04/22/17 04/22/17 History Patch] hydrALAZINE TAB [Apresoline Tab] 50 mg PO BID 04/22/17 04/22/17 History Senna Tab [Senokot] 17.2 mg PO DAILY 04/23/17 04/23/17 History Allergies/Adverse Reactions: Allergies Allergy/AdvReac Type Severity Reaction Status Date / Time codeine AdvReac Mild Vomiting Verified 04/22/17 11:55 - Constitutional Constitutional: Absent: chills, fatigue, fever(s), night sweats, weakness - EENT Eyes: Absent: blurry vision, diplopia, loss of vision Ears: Absent: decreased hearing, ear discharge, ear pain Nose, mouth and throat: Absent: dysphagia, epistaxis, headache(s), hoarseness, lip swelling, nasal congestion, neck pain, sinus pressure - Cardiovascular Cardiovascular: Absent: edema, lightheadedness - Respiratory Respiratory: Present: as per HPI - Gastrointestinal Gastrointestinal: Absent: abdominal pain, diarrhea, heartburn - Neurological Neurological: Absent: dizziness, focal weakness, numbness, paresthesias, radicular pain, syncope Medical,Surgical,& Family Hx - Medical History Cardio: History of: Hypertension HEENT: History of: Dental Problems (Upper/Lower Dentures) Endocrine: History of: Dyslipidemia, Endocrine Problems (Hypoglycemia) Respiratory: History of: Obstructive Sleep Apnea, Pneumonia Renal: History of: Renal (Kidney) Cancer ([facility] at [facility]?) Gastrointestinal: History of: Diverticulitis/ Diverticulosis, GERD, Hemorrhoids , Polyps Musculoskeletal: History of: Back/Neck Problems, Osteoporosis, Musculoskeletal Problems (Spinal Stenosis) - Surgical History Thoracic Surgeries: Surgical HX of;: Kidney (Renal Surgery) (Kidney biopsy) Patient denies;: Organ Transplant HEENT Surgeries: Surgical HX of: Tonsilectomy & Adenoidectomy Abdominal Surgeries: Surgical HX of: Appendectomy, Cholecystectomy, Colonoscopy ( (Year Unknown)), EGD (, 2016, Polyp Removal) Reproductive Surgeries: Surgical HX of;: Hysterectomy, Tubal Ligation Orthopedic Surgeries: Surgical HX of;: Total Hip Replacement (Right Knee Replacement ([facility] [place])), Total Knee Replacement (Right) - Family History Family History: Reports;: Family Diabetes (Father, Brother), Family Hypertension (Mother, Maternal Grandfather), Family Stroke (Mother) - Social History Smoking Status: Never smoker Frequency of Alcohol Use: None Type of Drug Use: None Exam Rheumatology - Constitutional Vitals: Vital Signs Temp Pulse Pulse Resp BP BP Pulse Ox 04/23/17 16:18 98.3 F 103 H 151/76 04/23/17 15:48 98.3 F 90 145/71 04/23/17 15:43 98.3 F 92 H 148/74 04/23/17 15:40 98.3 F 92 H 18 148/74 04/23/17 15:38 98.3 F 92 H 151/80 04/23/17 15:32 98.3 F 92 H 144/70 04/23/17 12:02 97.7 F 93 H 20 183/84 99 04/23/17 11:32 97.1 F L 87 20 174/83 98 04/23/17 07:45 97.9 F 97 H 20 157/77 97 04/23/17 07:00 20 04/23/17 05:04 18 04/23/17 04:23 99.8 F H 100 H 20 149/68 97 04/23/17 03:55 20 04/23/17 02:48 20 04/23/17 01:23 20 04/23/17 00:45 99 F 94 H 18 138/65 100 04/22/17 23:35 18 04/22/17 22:47 18 04/22/17 20:25 99.6 F 99 H 18 178/66 General appearance: no acute distress - Head Head exam: Present: normal inspection - Eye Eye exam: Present: EOMI Pupils: Present: OG - ENT ENT exam: Present: other (bilateral parotids are enlarged and palpable. No tenderness of focal mass noticed on palpation) - Neck Neck exam: Present: normal inspection. Absent: lymphadenopathy, thyromegaly - Respiratory Respiratory exam: Present: clear to auscultation bilaterally. Absent: rales, rhonchi, wheezes - Cardiovascular Cardiovascular exam: Present: regular rate and rhythm - GI/Abdominal GI/Abdominal exam: Present: normal bowel sounds. Absent: distended, guarding, tenderness, rebound - Extremities Exam Extremities exam: Present: normal inspection, full ROM - Back Exam Back exam: Present: normal inspection - Neurological Exam Neurological exam: Present: oriented X3, CN II-XII intact, reflexes normal - Skin Skin exam: Present: normal color, other (hyperpigmented lesions at arms bilateral) Results - Labs CBC & BMP: 04/23/17 10:23 04/23/17 04:12
[2017-04-23] MEDS ORDERED: ALBUTEROL 2.5 MG/3 ML NEB RESP TX PRN (18:26)
[2017-04-23] MEDS ORDERED: FUROSEMIDE 40 MG/4 ML VIAL IV ONE (18:26)
[2017-04-23] MEDS: ACETAMINOPHEN 325 MG TABLET PO PRN (21:17)
[2017-04-24] MEDS: ACETAMINOPHEN 325 MG TABLET PO PRN (05:27)
[2017-04-24 05:30] LABS: Basophils % 0.2 % (0.0-0.8); Eosinophils # 0.2 10*3/uL (0.0-0.87); Eosinophils % 2.6 % (0.00-10.9); Hematocrit 23.6 VOL% (35.7-47.0); Hemoglobin 7.6 GM/DL (12.0-16.0); Immature Granulocytes % 0.3 %; Immature Granulocytes Absolute 0.02 #; Lymphocytes # 1.5 10*3/uL (1.4-4.0); Lymphocytes % 22.2 % (21.3-54.2); Mean Corpuscular HGB Conc 32.2 GM/DL (32-36); Mean Corpuscular Hemoglobin 28 PG (27-34); Mean Corpuscular Volume 87.1 FL (87-102); Mean Platelet Volume 9.2 FL (9.6-12.0); Monocytes # 0.9 10*3/uL (0.11-0.8); Monocytes % 13.4 % (1.7-12.7); Neutrophils % 61.3 % (38.7-73.9); Platelet Count 192 T/CUMM (130-400); Red Blood Count 2.71 MC/CUMM (3.8-5.5); Red Cell Distribution Width 16.2 % (9.3-17.3); White Blood Count 6.6 T/CUMM (4-12)
[2017-04-24 05:56] LABS: Calcium 8.3 MG/DL (8.5-10.1); Magnesium 2.5 MG/DL (1.8-2.4); Osmolality,Calculated 306.8 MOS/KG (273-304); Potassium 4.5 MMOL/L (3.5-5.1)
[2017-04-24 08:07] LABS: Anti SS-A Antibodies < 16 EU/ML; Anti SS-B Antibodies < 16 EU/ML
--- NOTE | 2017-04-24 08:51 | Pulmonology Progress Note ---
Pulmonary - PN: Subj Interval history: 66-year-old black female with pulmonary hypertension. We are looking for underlying causes versus primary disease. She has had a sleep study and evaluation for lupus recently. Need final decisions on both of these. Consultants pending. PFTs have been ordered. VQ lung scan was negative. Venous Dopplers negative. Has renal failure with creatinine of about 5.5. This would make catheterization with any dye involved difficult but still could get a right heart cath to measure pressures and test for responsiveness. 04/24/2017 evaluations in progress. Does have a positive rheumatoid factor but other studies negative from a rheumatologic standpoint. Her sleep apnea and does not sound bad enough to cause pulmonary hypertension. PFTs remarkably show moderate restriction. She had a normal high-resolution chest CT as far as lung parenchyma is concerned, so does not have interstitial lung disease. There may be some element of chest wall restriction. Patient has heard herself wheeze from time to time. I do not think this is severe asthma with remodeling based on her history. Patient was transfused yesterday and is been more short of breath since then. We will give her one big dose of Lasix. She has a creatinine of 5.5. Nephrology was following earlier and needs to follow going forward. From pulmonary standpoint I think were at the point of having a right heart cath done to measure pressures and challenge to see if blood pressure would drop with adenosine or like medicine. This will help us decide on treatment. This appears to be primary pulmonary artery hypertension. Exam (Progress Note) - Constitutional Vitals: Period Temp Pulse Resp BP Sys/Benoit Pulse Ox Last 24 Hr 97.1 F-98.9 F 67-103 18-22 111-183/55-84 94-100 Exam: Patient's alert sitting up. Vital signs are normal. Pupils react to light. Throat is clear. Neck supple no bruits. Chest sounds clear. Heart normal rate and rhythm. P2 is slightly loud and I do hear a pulmonic systolic and diastolic murmur. Abdomen soft nontender no masses. Extremities no clubbing cyanosis, trace edema. Results - Labs CBC & BMP: 04/24/17 05:07 04/24/17 05:07 Lab Results: I have reviewed the past 24 hour labs Assessment and Plan (1) Pulmonary hypertension Status: Acute Assessment and plan: Echo indicates pulmonary hypertension with near normal left ventricular function. To see if she has an underlying cause for this or if it is primary. VQ lung scan was negative. Venous Dopplers negative. She has had an abnormal sleep study but I do not know the details of that. She is been evaluated for lupus and I do not know the results of that. She does have renal failure and her creatinine is up to 5 at this point. I will ask Dr. West to see her to follow-up on the possible sleep apnea. Will ask Dr. Fontaine to see her to follow-up on possible lupus. She will likely need a right heart cath to measure pressures directly. I will obtain PFTs to be sure she does not have some underlying chronic lung disease. Her high-resolution chest CT did not show any evidence of interstitial lung disease. 04/23/2017 needs follow-up of studies outlined above. Likely will need right heart cath at some point. 04/24/2017 please see updated under current illness. Probably represents primary pulmonary hypertension. Has positive rheumatoid factor, moderate restrictive PFTs, mild obstructive sleep apnea. Normal high-resolution CT other than enlargement of the pulmonary arteries. Negative VQ lung scan and venous Dopplers. Needs right heart cath to measure pressures directly and determine if it responsive to medicines. Then can make a decision about medications. I discussed the case at length with the patient's daughter. This is somewhat confusing to them, understandably. Current Visit: Yes (2) Chronic renal insufficiency, stage IV (severe) Status: Chronic Assessment and plan: Creatinine of 5.3. Renal is following. 04/24/[address] Ruff was seeing earlier Current Visit: Yes (3) SULLY (obstructive sleep apnea) Status: Chronic Assessment and plan: Has had a study for sleep apnea and reportedly does have it but it was recommended that she sleep with a tennis ball in the back of her shirt. This would suggest relatively mild sleep apnea which would be positional. Will ask Dr. West to review. 04/23/2017 Dr. West to see today. Patient had study in [employer] and was told to sew a tennis ball in the back of her night shirt. Appears to have mild SULLY based on that report. 04/24/[address] West is following up on that. Current Visit: Yes (4) Anemia Status: Acute Assessment and plan: Hematocrit 24. May be related to her renal failure. 04/24/2017 she was given 1 unit of packed cells yesterday. She feels worse since then. Hematocrit is only 23 today. Current Visit: Yes (5) Hypertension Status: Acute Assessment and plan: On appropriate medications. 04/23/2017 blood pressure controlled. 04/24/2017 blood pressure controlled with current medications. Current Visit: Yes
[2017-04-24] MEDS: POLYETHYLENE GLYCOL POWDER 17 GM PACK PO SCH ×2 (08:58→20:44)
[2017-04-24] MEDS: FUROSEMIDE 40 MG TABLET PO SCH (08:59)
[2017-04-24] MEDS: DOCUSATE SODIUM 100 MG CAPSULE PO SCH (08:59)
[2017-04-24] MEDS: amLODIPine 10 MG TABLET PO SCH (08:59)
[2017-04-24] MEDS: CALCIUM (CARBONATE)/VITAMIN D 600 MG-400 UNIT TABLET PO SCH (08:59)
[2017-04-24] MEDS: CETIRIZINE 10 MG TABLET PO SCH (08:59)
[2017-04-24] MEDS: PANTOPRAZOLE 40 MG TABLET PO SCH (08:59)
[2017-04-24] MEDS: INSULIN REGULAR 100 UNIT/ML SUBCUT SCH ×4 (09:00→20:58)
[2017-04-24] MEDS: GARLIC PO SCH (09:00)
[2017-04-24 09:20] LABS: Hemoglobin A1 (Alkaline) 97.4 % (96.5-98.5); Hemoglobin A2 (Alkaline) 2.6 % (1.5-3.5)
[2017-04-24] MEDS ORDERED: FUROSEMIDE INJ 160 MG in SODIUM CHLORIDE 0.9% 50 ML IV ONE (09:30)
--- NOTE | 2017-04-24 09:31 | Gastrointestinal Progress Note ---
<Ladonna Morejon Esther - Last Filed: 04/24/17 09:29> Assessment and Plan (1) Anemia Status: Acute Assessment and plan: 04/24-H&H remains at 7 following 1 unit of packed red blood cells. As below unable to receive second unit due to questionable reaction. Continue to monitor. Plan an addendum to follow by Dr. Garduno. 04/23-Admitted with SOB and chest pain with findings of anemia, hx of CKD. No prior transfusions in the past. 03/02 w/o overt bleeding. Check stools for occult blood. Recheck HH today. Plan and addendum to follow by Dr Garduno. Current Visit: Yes Gastroenterology - PN: Subj Interval history: CC: Anemia Patient is seen awake and alert lying in bed. States she is not feeling very well. She did not rest well last night due to she states after she was transfused her first unit of blood she began having some strange sensations such as pain down her arm and pain in her neck as well as some nausea. She did not receive the second unit of blood yesterday. She denies any overt bleeding. She denies any abdominal pain, nausea vomiting. She is tolerating a regular diet and has a good appetite. Her H&H remains unchanged following that with 1 unit of blood with her still at 03/01. Abdomen is soft, nontender ROS: Denies shortness of breath or chest pain Exam (Progress Note) - Constitutional Vitals: Period Temp Pulse Resp BP Sys/Benoit Pulse Ox Last 24 Hr 97.1 F-98.9 F 67-103 18-22 111-183/55-85 94-100 General appearance: normal weight, no acute distress - Head Head exam: Present: normal inspection, normocephalic - Eye Eye exam: Present: other (Lids and conjunctive are unremarkable). Absent: scleral icterus - ENT ENT exam: Present: normal exam, normal oropharynx - Neck Neck exam: Present: normal inspection - Respiratory Respiratory exam: Present: clear to auscultation bilaterally. Absent: rales, rhonchi, wheezes - Cardiovascular Cardiovascular exam: Present: regular rate and rhythm. Absent: diastolic murmur , JVD, systolic murmur - GI/Abdominal GI/Abdominal exam: Present: normal bowel sounds, soft. Absent: ascites, distended, mass, organomegaly, tenderness - Extremities Exam Extremities exam: Present: normal inspection, full ROM - Back Exam Back exam: Present: normal inspection - Neurological Exam Neurological exam: Present: alert, oriented X3 - Psychiatric Psychiatric exam: Present: normal affect, normal mood - Skin Skin exam: Present: normal color, warm, dry Results - Labs CBC & BMP: 04/24/17 05:07 04/24/17 05:07 Lab Results: I have reviewed the past 24 hour labs Specialty Discharge - Follow Up or Referrals Follow up with: Eli West MD [Physician] - (Sleep study- May 19 at 7:15 PM. Stop in admissions. No caffeine or naps before study. Take home meds before coming. Bring something in sleep in. Eat before coming.) <Cain Garduno - Last Filed: 04/24/17 16:23> Exam (Progress Note) - Constitutional Vitals: Period Temp Pulse Resp BP Sys/Benoit Pulse Ox Last 24 Hr 97.2 F-98.9 F 64-92 16-22 111-158/55-85 94-100 Results - Labs CBC & BMP: 04/24/17 05:07 04/24/17 05:07
--- NOTE | 2017-04-24 12:47 | Sleep Medicine Progress Note ---
Assessment and Plan (1) SULLY (obstructive sleep apnea) Status: Chronic Assessment and plan: Home sleep testing was negative for significant sleep apnea. Given her severe pulmonary hypertension, we will set her up for outpatient polysomnography. Follow-up will be in the sleep clinic. Thank you for this consult. Current Visit: Yes (2) Pulmonary hypertension Status: Acute Current Visit: Yes (3) Hypertension Status: Acute Current Visit: Yes Sleep Medicine Subjective Interval history: Patient did undergo home sleep testing last night and did not have any significant sleep apnea. Her respiratory event index was actually 0. This certainly would be evidence against significant sleep apnea as a contributing factor to her pulmonary hypertension. Nevertheless, I do think we should do a formal sleep study to be absolutely certain. We will set this up after discharge as an outpatient. Exam (Progress Note) - Constitutional Vitals: Period Temp Pulse Resp BP Sys/Benoit Pulse Ox Last 24 Hr 97.2 F-98.9 F 64-103 16-22 111-151/55-85 94-100 Exam: She is alert and responsive in no acute distress. Pupils equal round reactive to light and accommodation. Extraocular movements intact. Oropharynx with a class III Mallampati exam. Neck supple without adenopathy or thyromegaly. No supraclavicular adenopathy is noted. Chest with good air movement no focal wheeze rhonchi or rales. Cardiac exam reveals a regular rhythm without murmur or gallop. Abdomen obese nontender extremities with less edema today compared to yesterday. Neurologically, she is grossly intact. Results - Labs CBC & BMP: 04/24/17 05:07 04/24/17 05:07 Lab Results: I have reviewed the past 24 hour labs
[2017-04-24] MEDS: ENOXAPARIN 30 MG/0.3 ML SYRINGE SUBCUT SCH (15:26)
--- NOTE | 2017-04-24 16:19 | Cardiology Progress Note ---
Beatriz Thacker April RN, am scribing for, and in the presence of, Nabil Kellogg MD 16:19. Assessment and Plan (1) Pulmonary hypertension Status: Acute Assessment and plan: Echo and chest x-ray suggestive of pulmonary hypertension. Pulmonary medicine is following. Current Visit: Yes (2) Chronic renal insufficiency, stage IV (severe) Status: Chronic Assessment and plan: Creatinine is 5.5 today. Nephrology is following. Current Visit: Yes (3) SULLY (obstructive sleep apnea) Status: Chronic Assessment and plan: Sleep medicine has been consulted. Current Visit: Yes (4) Anemia Status: Acute Assessment and plan: She was transfused 1 unit of blood product yesterday, she refused her second unit. H&H today is 7.6 and 23.6. GI has been consulted to evaluate. Current Visit: Yes (5) Hypertension Status: Acute Assessment and plan: Blood pressures have been stable. Current Visit: Yes (6) Chest pain Status: Acute Assessment and plan: She denies any chest pain. Current Visit: Yes Cardiology - PN: Subj Interval history: Wirer Helper: Dr. Madsen Summary: Ms. Baker is a 66 year old female who was first seen by Dr. Madsen today. She was referred to him by Dr. Ortega for chest pressure and severe dyspnea on exertion has had a severe decline in her functional status. 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 She has a history of chronic renal failure, anemia, hypertension, sleep apnea (does not use CPAP), and diverticulitis. She reports she has been short of breath for a while but this is gotten worse over the last several weeks. This is brought on by any amount of exertion, it will improve if she rests. She also reports having 2 pillow orthopnea. For the last 2 weeks she has been having palpitations and chest pain. She describes the chest pain as a soreness in the center of her chest. She says it is worse with activity and resting lessons it, but it does not completely alleviate it. She denies any radiation to her back jaw or arms. The pain is reproducible. When the pain is at its worst she rates it a 10 on a scale of 1-10. She also says she has been having some lower extremity edema for the last week or so. EKG showed sinus rhythm heart rate of 93. Echo done in Dr. Madsen's office today showed ejection fraction of 65% and severe pulmonary hypertension with an estimated pulmonary artery systolic pressure estimated at 62. Chest x-ray and CT of the chest suggested underlying portal hypertension with no acute pulmonary process. Venous Doppler ultrasound was negative for DVT of either extremity. She has had a nuclear lung scan, those results are not back at this time. Blood pressure on admission was elevated at 170/80. Significant labs from Dr. Ortega' s office included a creatinine of 5.2 and hemoglobin of 9.9. The only lab done today that is back at this time is her CBC. Her H&H here is 7.8 and 24.4. Initial visit April 22, 2017: At this time she is resting in bed in no acute distress. She denies any shortness of breath. She is complaining of some chest soreness, but stating it is a 7 on a scale of 1-10 at this time. She denies any palpitations or dizziness currently. She has 2+ pitting edema to her bilateral lower extremities. April 23, 2017: Ms. Baker's only complaint this morning is of some sinus congestion and a cough. Will get sinus films to evaluate. Her pressures have improved overnight. O2 sat this morning was 97%. Creatinine continues to be elevated at 5.5 today. EKG this morning showed sinus rhythm with heart rate of 92. VQ lung scan done yesterday indicated low probability for pulmonary embolism. H&H this morning is 7.6 and 23.7. We will transfuse with 2 units of packed red blood cells today and get an anemia profile on her. We have consulted GI to evaluate this as well. April 24, 2017: Ms. Baker states she does not feel well this morning. She says she has felt bad ever since she was transfused yesterday. She complains of shortness of breath, extreme weakness, and muscle spasms in her neck. She denies any chest pain. She refused her second unit of blood because she felt so bad after the first. Cardiology was called yesterday afternoon regarding patient shortness of breath and ordered Lasix 40 mg IV and Xopenex as needed. Pulmonary saw her this morning and has or ordered an additional 160 mg of Lasix IV. Oxygen is currently in use via nasal cannula, O2 sat 100%. Vital signs been stable throughout the night. H&H today is relatively unchanged at 7.6 and 23.6. Creatinine remains at 5.5. Sinus x-rays done yesterday showed no evidence of sinus abnormality. She had increasing shortness of breath with blood transfusion. I am going to see if I can get her further diuresed with the addition of Zaroxolyn to see whether she will diurese and hopefully her counts will come up. I think most of this is volume overload related and we will plan to continue pushing diuresis and offloading as tolerated. I have discussed in detail the particulars of this case and I have examined the patient and reviewed the patient's chart both current and old. I was directly involved in the patient's evaluation and management and I completely agree with Ana Henderson RN regarding this patient's evaluation and treatment plan. Exam (Progress Note) - Constitutional Vitals: Period Temp Pulse Resp BP Sys/Benoit Pulse Ox Last 24 Hr 97.1 F-98.9 F 67-103 18-22 111-183/55-84 94-100 Exam: General appearance: no acute distress, over weight - Head Head exam: Absent: abrasion, contusion, hematoma, laceration - Eye Eye exam: Present: EOMI. Absent: periorbital swelling, laceration to eyelids Pupils: Present: OG - Neck Neck exam: Absent: tenderness - Respiratory Respiratory exam: Present: clear to auscultation bilaterally, chest wall tenderness. Absent: accessory muscle use - Cardiovascular Cardiovascular exam: Absent: carotid bruit, JVD - GI/Abdominal GI/Abdominal exam: Present: normal bowel sounds, soft. Absent: distended, tenderness - Extremities Exam Extremities exam: Present: edema (2+ pitting edema to bilateral lower extremities) - Neurological Exam Neurological exam: Present: alert, oriented X3 - Psychiatric Psychiatric exam: Present: normal affect, normal mood - Skin Skin exam: Present: warm, dry Result/EKG - Labs CBC & BMP: 04/24/17 05:07 04/24/17 05:07 Lab Results: I have reviewed the past 24 hour labs Labs: Laboratory Results - last 24 hr 04/23/17 04/23/17 04/23/17 10:23 10:23 10:23 WBC 7.6 RBC 2.69 L Hgb 7.6 L Hct 23.7 L MCV 88.1 MCH 28 MCHC 32.1 RDW 16.1 Plt Count 216 MPV 8.9 L Neut % (Auto) 65.8 Lymph % (Auto) 18.9 L [place]hin % (Auto) 11.5 Eos % (Auto) 2.9 Baso % (Auto) 0.1 Neut # (Auto) 5.0 Lymph # (Auto) 1.4 [place] # (Auto) 0.9 H Eos # (Auto) 0.2 Baso # (Auto) 0.0 Immature Gran % 0.8 Nucleated RBC % 0.0 Immature Gran # 0.06 Nucleated RBCs # 0.00 Immature Plt Fraction 0.0 ESR Westergren 126 H Absolute Retic 0.1 Percent Retic 2.0 H Retic Hgb Equivalent 27.8 L Sodium Potassium Chloride Carbon Dioxide Anion Gap BUN Creatinine GFR Calculation BUN/Creatinine Ratio Glucose POC Glucose Calculated Osmolality Calcium Magnesium Ferritin 192.9 Total Creatine Kinase C-Reactive Protein Vitamin B12 380 Folate 21.5 Rheumatoid Factor SS-A/Ro Antibody SS-B/La Antibody Sm (Soto) Antibody [employer] Antibody Blood Type Antibody Screen YUSUF (IgG-AHG) YUSUF, Polyspecific Crossmatch 04/23/17 04/23/17 04/23/17 10:23 10:23 12:22 WBC RBC Hgb Hct MCV MCH MCHC RDW Plt Count MPV Neut % (Auto) Lymph % (Auto) [place] % (Auto) Eos % (Auto) Baso % (Auto) Neut # (Auto) Lymph # (Auto) [place] # (Auto) Eos # (Auto) Baso # (Auto) Immature Gran % Nucleated RBC % Immature Gran # Nucleated RBCs # Immature Plt Fraction ESR Westergren Absolute Retic Percent Retic Retic Hgb Equivalent Sodium Potassium Chloride Carbon Dioxide Anion Gap BUN Creatinine GFR Calculation BUN/Creatinine Ratio Glucose POC Glucose 108 H Calculated Osmolality Calcium Magnesium Ferritin Total Creatine Kinase C-Reactive Protein Vitamin B12 Folate Rheumatoid Factor SS-A/Ro Antibody SS-B/La Antibody Sm (Soto) Antibody [employer] Antibody Blood Type B POSITIVE Antibody Screen Negative YUSUF (IgG-AHG) Negative YUSUF, Polyspecific Negative Crossmatch See Detail 04/23/17 04/23/17 04/23/17 15:14 15:14 15:17 WBC RBC Hgb Hct MCV MCH MCHC RDW Plt Count MPV Neut % (Auto) Lymph % (Auto) [place] % (Auto) Eos % (Auto) Baso % (Auto) Neut # (Auto) Lymph # (Auto) [place] # (Auto) Eos # (Auto) Baso # (Auto) Immature Gran % Nucleated RBC % Immature Gran # Nucleated RBCs # Immature Plt Fraction ESR Westergren 128 H Absolute Retic Percent Retic Retic Hgb Equivalent Sodium Potassium Chloride Carbon Dioxide Anion Gap BUN Creatinine GFR Calculation BUN/Creatinine Ratio Glucose POC Glucose Calculated Osmolality Calcium Magnesium Ferritin Total Creatine Kinase C-Reactive Protein Vitamin B12 Folate Rheumatoid Factor 149 H SS-A/Ro Antibody < 16 SS-B/La Antibody < 16 Sm (Soto) Antibody < 16 [employer] Antibody < 16 Blood Type Antibody Screen YUSUF (IgG-AHG) YUSUF, Polyspecific Crossmatch 04/23/17 04/23/17 04/23/17 15:17 15:17 20:53 WBC RBC Hgb Hct MCV MCH MCHC RDW Plt Count MPV Neut % (Auto) Lymph % (Auto) [place] % (Auto) Eos % (Auto) Baso % (Auto) Neut # (Auto) Lymph # (Auto) [place] # (Auto) Eos # (Auto) Baso # (Auto) Immature Gran % Nucleated RBC % Immature Gran # Nucleated RBCs # Immature Plt Fraction ESR Westergren Absolute Retic Percent Retic Retic Hgb Equivalent Sodium Potassium Chloride Carbon Dioxide Anion Gap BUN Creatinine GFR Calculation BUN/Creatinine Ratio Glucose POC Glucose 108 H Calculated Osmolality Calcium Magnesium Ferritin Total Creatine Kinase 224 H C-Reactive Protein 2.77 H Vitamin B12 Folate Rheumatoid Factor SS-A/Ro Antibody SS-B/La Antibody Sm (Soto) Antibody [employer] Antibody Blood Type Antibody Screen YUSUF (IgG-AHG) YUSUF, Polyspecific Crossmatch 04/23/17 04/24/17 04/24/17 Unknown 05:07 05:07 WBC 6.6 RBC 2.71 L Hgb 7.6 L Hct 23.6 L MCV 87.1 MCH 28 MCHC 32.2 RDW 16.2 Plt Count 192 MPV 9.2 L Neut % (Auto) 61.3 Lymph % (Auto) 22.2 [place] % (Auto) 13.4 H Eos % (Auto) 2.6 Baso % (Auto) 0.2 Neut # (Auto) 4.0 Lymph # (Auto) 1.5 [place] # (Auto) 0.9 H Eos # (Auto) 0.2 Baso # (Auto) 0.0 Immature Gran % 0.3 Nucleated RBC % 0.0 Immature Gran # 0.02 Nucleated RBCs # 0.00 Immature Plt Fraction 0.0 ESR Westergren Absolute Retic Percent Retic Retic Hgb Equivalent Sodium 144 Potassium 4.5 Chloride 115 H Carbon Dioxide 18 L Anion Gap 15.5 H BUN 72 H Creatinine 5.50 H GFR Calculation 10 BUN/Creatinine Ratio 13.00 Glucose 92 POC Glucose Calculated Osmolality 306.8 H Calcium 8.3 L Magnesium 2.5 H Ferritin Total Creatine Kinase C-Reactive Protein Vitamin B12 Folate Rheumatoid Factor SS-A/Ro Antibody SS-B/La Antibody Sm (Soto) Antibody [employer] Antibody Blood Type B POSITIVE Antibody Screen YUSUF (IgG-AHG) YUSUF, Polyspecific Crossmatch 04/24/17 07:21 WBC RBC Hgb Hct MCV MCH MCHC RDW Plt Count MPV Neut % (Auto) Lymph % (Auto) [place] % (Auto) Eos % (Auto) Baso % (Auto) Neut # (Auto) Lymph # (Auto) [place] # (Auto) Eos # (Auto) Baso # (Auto) Immature Gran % Nucleated RBC % Immature Gran # Nucleated RBCs # Immature Plt Fraction ESR Westergren Absolute Retic Percent Retic Retic Hgb Equivalent Sodium Potassium Chloride Carbon Dioxide Anion Gap BUN Creatinine GFR Calculation BUN/Creatinine Ratio Glucose POC Glucose 85 Calculated Osmolality Calcium Magnesium Ferritin Total Creatine Kinase C-Reactive Protein Vitamin B12 Folate Rheumatoid Factor SS-A/Ro Antibody SS-B/La Antibody Sm (Soto) Antibody [employer] Antibody Blood Type Antibody Screen YUSUF (IgG-AHG) YUSUF, Polyspecific Crossmatch - EKG EKG results: interpreted by me EKG shows: sinus rhythm Specialty Discharge - Follow Up or Referrals Follow up with: Eli West MD [Physician] - (Sleep study- May 19 at 7:15 PM. Stop in admissions. No caffeine or naps before study. Take home meds before coming. Bring something in sleep in. Eat before coming.) I, Nabil Kellogg MD, personally performed the services described in this documentation, ascribed by Ana Henderson RN in my presence, and it is both accurate and complete [id number] .
--- NOTE | 2017-04-24 17:16 | Nephrology Progress Note ---
Nephrology - PN: Subj Interval history: This is a late entry note for 04/23/2017 Patient was seen and examined yesterday. Shortness of breath not significantly changed. No chest pain today. Exam (PN)-Nephrology - Vital Signs Vital signs: Period Temp Pulse Resp BP Sys/Benoit Pulse Ox Last 24 Hr 97.2 F-98.9 F 64-92 16-22 111-158/55-85 94-100 Exam: Gen.: Alert and oriented x3. ENT: Pupils equal round reactive to light. EOMs intact. Mucous membranes moist. Neck: Supple. No JVD or bruit. Cardiovascular: Regular rate and rhythm. No murmur rub or gallop Lungs: No rales or wheezes Abdomen: Soft. Nontender. Positive bowel sounds. No organomegaly Extremities: 1-2+ edema - Lab 04/24/17 05:07 04/24/17 05:07 Most recent lab results Calcium 8.3 MG/DL (8.5-10.1) L 04/24/17 05:07 Magnesium 2.5 MG/DL (1.8-2.4) H 04/24/17 05:07 Assessment and Plan (1) Chronic kidney disease, stage V Status: Acute Assessment and plan: 66-year-old woman with: * CRF stage V. Renal function has slowly declined. She has no uremic symptoms. Recommend avoiding aggressive diuresis. * Renal cell carcinoma. Status post cryoablation 2013. She states MRI at [facility] last month was negative * Pulmonary hypertension. Echocardiogram shows EF 65% with pulmonary hypertension. CT chest confirms pulmonary hypertension. No pulmonary edema seen. * Anemia. This is likely contributing to ERICKSON. Erythropoietin level will be checked. Transfusion has been ordered * Hypertension * Chest pain. Evaluated by cardiology Current Visit: Yes (2) Anemia Status: Acute Current Visit: Yes (3) Chest pain Status: Acute Current Visit: Yes (4) Hypertension Status: Acute Current Visit: Yes (5) Pulmonary hypertension Status: Acute Current Visit: Yes (6) SULLY (obstructive sleep apnea) Status: Chronic Current Visit: Yes Specialty Discharge - Follow Up or Referrals Follow up with: Eli West MD [Physician] - (Sleep study- May 19 at 7:15 PM. Stop in admissions. No caffeine or naps before study. Take home meds before coming. Bring something in sleep in. Eat before coming.)
--- NOTE | 2017-04-24 17:17 | Nephrology Progress Note ---
Nephrology - PN: Subj Interval history: She reports having chest pain and muscle spasm during transfusion last p.m. ERICKSON is not significantly changed. She denies GI symptoms. Exam (PN)-Nephrology - Vital Signs Vital signs: Period Temp Pulse Resp BP Sys/Benoit Pulse Ox Last 24 Hr 97.2 F-98.9 F 64-92 16-22 111-158/55-85 94-100 Exam: Gen.: Alert and oriented x3. ENT: Pupils equal round reactive to light. EOMs intact. Mucous membranes moist. Neck: Supple. No JVD or bruit. Cardiovascular: Regular rate and rhythm. No murmur rub or gallop Lungs: Clear Abdomen: Soft. Nontender. Positive bowel sounds. No organomegaly Extremities: 2+ edema - Lab 04/24/17 05:07 04/24/17 05:07 Most recent lab results Calcium 8.3 MG/DL (8.5-10.1) L 04/24/17 05:07 Magnesium 2.5 MG/DL (1.8-2.4) H 04/24/17 05:07 Assessment and Plan (1) Chronic kidney disease, stage V Status: Acute Assessment and plan: 66-year-old woman with: * CRF stage V. Renal function has slowly declined. She has no uremic symptoms. Creatinine slightly higher today. Weight is stable. Urine output has not been recorded. RA factor positive. Other serologies negative * Renal cell carcinoma. Status post cryoablation 2013. She states MRI at [facility] last month was negative * Pulmonary hypertension. Echocardiogram shows EF 65% with pulmonary hypertension. CT chest confirms pulmonary hypertension. No pulmonary edema seen. * Anemia. She is receiving her second unit RBC * Hypertension * Chest pain. Evaluated by cardiology Current Visit: Yes (2) Anemia Status: Acute Current Visit: Yes (3) Chest pain Status: Acute Current Visit: Yes (4) Hypertension Status: Acute Current Visit: Yes (5) Pulmonary hypertension Status: Acute Current Visit: Yes (6) SULLY (obstructive sleep apnea) Status: Chronic Current Visit: Yes Specialty Discharge - Follow Up or Referrals Follow up with: Eli West MD [Physician] - (Sleep study- May 19 at 7:15 PM. Stop in admissions. No caffeine or naps before study. Take home meds before coming. Bring something in sleep in. Eat before coming.)
[2017-04-25 06:58] LABS: Calcium 8.3 MG/DL (8.5-10.1); Potassium 4.6 MMOL/L (3.5-5.1)
[2017-04-25] MEDS: PANTOPRAZOLE 40 MG TABLET PO SCH (08:19)
[2017-04-25] MEDS: CALCIUM (CARBONATE)/VITAMIN D 600 MG-400 UNIT TABLET PO SCH (08:19)
[2017-04-25] MEDS: amLODIPine 10 MG TABLET PO SCH (08:19)
[2017-04-25] MEDS: DOCUSATE SODIUM 100 MG CAPSULE PO SCH (08:19)
[2017-04-25] MEDS: FUROSEMIDE 40 MG TABLET PO SCH (08:19)
[2017-04-25] MEDS: POLYETHYLENE GLYCOL POWDER 17 GM PACK PO SCH ×2 (08:20→21:09)
[2017-04-25] MEDS: GARLIC PO SCH (08:20)
[2017-04-25] MEDS: metOLazone 5 MG TABLET PO SCH (08:20)
[2017-04-25] MEDS: INSULIN REGULAR 100 UNIT/ML SUBCUT SCH ×4 (08:20→23:55)
[2017-04-25] MEDS: CETIRIZINE 10 MG TABLET PO SCH (08:20)
--- NOTE | 2017-04-25 08:40 | Cardiology Progress Note ---
Assessment and Plan (1) Pulmonary hypertension Status: Acute Assessment and plan: Echo and chest x-ray suggestive of pulmonary hypertension. Pulmonary medicine is following. Current Visit: Yes (2) Chronic renal insufficiency, stage IV (severe) Status: Chronic Assessment and plan: Creatinine is 5.5 today. Nephrology is following. Current Visit: Yes (3) SULLY (obstructive sleep apnea) Status: Chronic Assessment and plan: Sleep medicine has been consulted. Current Visit: Yes (4) Anemia Status: Acute Assessment and plan: She was transfused 1 unit of blood product yesterday, she refused her second unit. H&H today is 7.6 and 23.6. GI has been consulted to evaluate. Current Visit: Yes (5) Hypertension Status: Acute Assessment and plan: Blood pressures have been stable. Current Visit: Yes (6) Chest pain Status: Acute Assessment and plan: She denies any chest pain. Current Visit: Yes Cardiology - PN: Subj Interval history: Summary: Ms. Baker is a 66 year old female who was first seen by Dr. Madsen today. She was referred to him by Dr. Ortega for chest pressure and severe dyspnea on exertion has had a severe decline in her functional status. She has never seen a director of construction in the past denies ever having had a heart cath or stress test. She has a history of chronic renal failure, anemia, hypertension, sleep apnea (does not use CPAP), and diverticulitis. She reports she has been short of breath for a while but this is gotten worse over the last several weeks. This is brought on by any amount of exertion, it will improve if she rests. She also reports having 2 pillow orthopnea. For the last 2 weeks she has been having palpitations and chest pain. She describes the chest pain as a soreness in the center of her chest. She says it is worse with activity and resting lessons it, but it does not completely alleviate it. She denies any radiation to her back jaw or arms. The pain is reproducible. When the pain is at its worst she rates it a 10 on a scale of 1-10. She also says she has been having some lower extremity edema for the last week or so. EKG showed sinus rhythm heart rate of 93. Echo done in Dr. Madsen's office today showed ejection fraction of 65% and severe pulmonary hypertension with an estimated pulmonary artery systolic pressure estimated at 62. Chest x-ray and CT of the chest suggested underlying portal hypertension with no acute pulmonary process. Venous Doppler ultrasound was negative for DVT of either extremity. She has had a nuclear lung scan, those results are not back at this time. Blood pressure on admission was elevated at 170/80. Significant labs from Dr. Ortega' s office included a creatinine of 5.2 and hemoglobin of 9.9. The only lab done today that is back at this time is her CBC. Her H&H here is 7.8 and 24.4. Initial visit April 22, 2017: At this time she is resting in bed in no acute distress. She denies any shortness of breath. She is complaining of some chest soreness, but stating it is a 7 on a scale of 1-10 at this time. She denies any palpitations or dizziness currently. She has 2+ pitting edema to her bilateral lower extremities. April 23, 2017: Ms. Baker's only complaint this morning is of some sinus congestion and a cough. Will get sinus films to evaluate. Her pressures have improved overnight. O2 sat this morning was 97%. Creatinine continues to be elevated at 5.5 today. EKG this morning showed sinus rhythm with heart rate of 92. VQ lung scan done yesterday indicated low probability for pulmonary embolism. H&H this morning is 7.6 and 23.7. We will transfuse with 2 units of packed red blood cells today and get an anemia profile on her. We have consulted GI to evaluate this as well. April 24, 2017: Ms. Baker states she does not feel well this morning. She says she has felt bad ever since she was transfused yesterday. She complains of shortness of breath, extreme weakness, and muscle spasms in her neck. She denies any chest pain. She refused her second unit of blood because she felt so bad after the first. Cardiology was called yesterday afternoon regarding patient shortness of breath and ordered Lasix 40 mg IV and Xopenex as needed. Pulmonary saw her this morning and has or ordered an additional 160 mg of Lasix IV. Oxygen is currently in use via nasal cannula, O2 sat 100%. Vital signs been stable throughout the night. H&H today is relatively unchanged at 7.6 and 23.6. Creatinine remains at 5.5. Sinus x-rays done yesterday showed no evidence of sinus abnormality. She had increasing shortness of breath with blood transfusion. I am going to see if I can get her further diuresed with the addition of Zaroxolyn to see whether she will diurese and hopefully her counts will come up. I think most of this is volume overload related and we will plan to continue pushing diuresis and offloading as tolerated. I have discussed in detail the particulars of this case and I have examined the patient and reviewed the patient's chart both current and old. I was directly involved in the patient's evaluation and management and I completely agree with Ana Henderson RN regarding this patient's evaluation and treatment plan. April 25, 2017: She says she feels a little better today. Her weight is actually up several kilograms. Her counts are stable. She has no exercise tolerance at all. I am going to add Zaroxolyn as noted above and see whether we can diurese her. At this point our concern would be related to increasing creatinine and she may well end up on dialysis because of her renal insufficiency but I think we need to push some diuresis to see whether she will feel better. She is lying flat in the bed and does not have any other specific complaints. Exam (Progress Note) - Constitutional Vitals: Period Temp Pulse Resp BP Sys/Benoit Pulse Ox Last 24 Hr 97.2 F-98.5 F 63-84 16-22 131-158/66-85 97-100 Exam: General appearance: no acute distress, over weight - Head Head exam: Absent: abrasion, contusion, hematoma, laceration - Eye Eye exam: Present: EOMI. Absent: periorbital swelling, laceration to eyelids Pupils: Present: OG - Neck Neck exam: Absent: tenderness - Respiratory Respiratory exam: Present: clear to auscultation bilaterally, chest wall tenderness. Absent: accessory muscle use - Cardiovascular Cardiovascular exam: Absent: carotid bruit, JVD - GI/Abdominal GI/Abdominal exam: Present: normal bowel sounds, soft. Absent: distended, tenderness - Extremities Exam Extremities exam: Present: edema (2+ pitting edema to bilateral lower extremities) - Neurological Exam Neurological exam: Present: alert, oriented X3 - Psychiatric Psychiatric exam: Present: normal affect, normal mood - Skin Skin exam: Present: warm, dry Result/EKG - Labs CBC & BMP: 04/24/17 05:07 04/25/17 04:48 Labs: Laboratory Results - last 24 hr 04/23/17 04/23/17 04/23/17 10:23 10:23 10:23 Anemia Panel Interp Hemoglobin A1 97.4 Hemoglobin A2 2.6 Hgb ELP Interp Sodium Potassium Chloride Carbon Dioxide Anion Gap BUN Creatinine GFR Calculation BUN/Creatinine Ratio Glucose POC Glucose Calculated Osmolality Calcium Blood Type B POSITIVE Antibody Screen Negative Crossmatch See Detail 04/24/17 04/24/17 04/24/17 11:14 16:17 19:41 Anemia Panel Interp Hemoglobin A1 Hemoglobin A2 Hgb ELP Interp Sodium Potassium Chloride Carbon Dioxide Anion Gap BUN Creatinine GFR Calculation BUN/Creatinine Ratio Glucose POC Glucose 87 122 H 140 H Calculated Osmolality Calcium Blood Type Antibody Screen Crossmatch 04/25/17 04/25/17 04:48 08:00 Anemia Panel Interp Hemoglobin A1 Hemoglobin A2 Hgb ELP Interp Sodium 143 Potassium 4.6 Chloride 113 H Carbon Dioxide 17 L Anion Gap 17.6 H BUN 73 H Creatinine 5.40 H GFR Calculation 10 BUN/Creatinine Ratio 13.00 Glucose 77 POC Glucose 80 Calculated Osmolality 305.0 H Calcium 8.3 L Blood Type Antibody Screen Crossmatch Specialty Discharge - Follow Up or Referrals Follow up with: Eli West MD [Physician] - (Sleep study- May 19 at 7:15 PM. Stop in admissions. No caffeine or naps before study. Take home meds before coming. Bring something in sleep in. Eat before coming.)
--- NOTE | 2017-04-25 11:59 | Pulmonology Progress Note ---
Pulmonary - PN: Subj Interval history: 66-year-old black female with pulmonary hypertension. We are looking for underlying causes versus primary disease. She has had a sleep study and evaluation for lupus recently. Need final decisions on both of these. Consultants pending. PFTs have been ordered. VQ lung scan was negative. Venous Dopplers negative. Has renal failure with creatinine of about 5.5. This would make catheterization with any dye involved difficult but still could get a right heart cath to measure pressures and test for responsiveness. 04/24/2017 evaluations in progress. Does have a positive rheumatoid factor but other studies negative from a rheumatologic standpoint. Her sleep apnea and does not sound bad enough to cause pulmonary hypertension. PFTs remarkably show moderate restriction. She had a normal high-resolution chest CT as far as lung parenchyma is concerned, so does not have interstitial lung disease. There may be some element of chest wall restriction. Patient has heard herself wheeze from time to time. I do not think this is severe asthma with remodeling based on her history. Patient was transfused yesterday and is been more short of breath since then. We will give her one big dose of Lasix. She has a creatinine of 5.5. Nephrology was following earlier and needs to follow going forward. From pulmonary standpoint I think were at the point of having a right heart cath done to measure pressures and challenge to see if blood pressure would drop with adenosine or like medicine. This will help us decide on treatment. This appears to be primary pulmonary artery hypertension. 04/25/2017 patient has had a bit of a nosebleed. Probably a combination of renal insufficiency anticoagulants and nasal biprong. We will see if we can do without the oxygen. Await word from cardiology on whether a right heart cath is to be done. Agree that she is likely to need dialysis before too much longer. We will stop her Lovenox DVT prophylaxis. Exam (Progress Note) - Constitutional Vitals: Period Temp Pulse Resp BP Sys/Benoit Pulse Ox Last 24 Hr 97.5 F-98.5 F 63-71 16-22 131-158/66-85 97-100 Exam: Patient's alert sitting up. Vital signs are normal. Pupils react to light. Small amount of blood in both nostrils. Throat is clear. Neck supple no bruits. Chest sounds clear. Heart normal rate and rhythm. P2 is slightly loud and I do hear a pulmonic systolic and diastolic murmur. Abdomen soft nontender no masses. Extremities no clubbing cyanosis, trace edema. Results - Labs CBC & BMP: 04/24/17 05:07 04/25/17 04:48 Lab Results: I have reviewed the past 24 hour labs Assessment and Plan (1) Pulmonary hypertension Status: Acute Assessment and plan: Echo indicates pulmonary hypertension with near normal left ventricular function. To see if she has an underlying cause for this or if it is primary. VQ lung scan was negative. Venous Dopplers negative. She has had an abnormal sleep study but I do not know the details of that. She is been evaluated for lupus and I do not know the results of that. She does have renal failure and her creatinine is up to 5 at this point. I will ask Dr. West to see her to follow-up on the possible sleep apnea. Will ask Dr. Fontaine to see her to follow-up on possible lupus. She will likely need a right heart cath to measure pressures directly. I will obtain PFTs to be sure she does not have some underlying chronic lung disease. Her high-resolution chest CT did not show any evidence of interstitial lung disease. 04/23/2017 needs follow-up of studies outlined above. Likely will need right heart cath at some point. 04/24/2017 please see updated under current illness. Probably represents primary pulmonary hypertension. Has positive rheumatoid factor, moderate restrictive PFTs, mild obstructive sleep apnea. Normal high-resolution CT other than enlargement of the pulmonary arteries. Negative VQ lung scan and venous Dopplers. Needs right heart cath to measure pressures directly and determine if it responsive to medicines. Then can make a decision about medications. I discussed the case at length with the patient's daughter. This is somewhat confusing to them, understandably. 04/25/2017 await plans for right heart cath to decide with what to treat her pulmonary hypertension. Current Visit: Yes (2) Chronic renal insufficiency, stage IV (severe) Status: Chronic Assessment and plan: Creatinine of 5.3. Renal is following. 04/24/[address] Ruff was seeing earlier 04/25/2017 trying to diurese her. Agree with Dr. Kellogg that she may require dialysis to offload fluid Current Visit: Yes (3) SULLY (obstructive sleep apnea) Status: Chronic Assessment and plan: Has had a study for sleep apnea and reportedly does have it but it was recommended that she sleep with a tennis ball in the back of her shirt. This would suggest relatively mild sleep apnea which would be positional. Will ask Dr. West to review. 04/23/2017 Dr. West to see today. Patient had study in [employer] and was told to sew a tennis ball in the back of her night shirt. Appears to have mild SULLY based on that report. 04/24/[address] West is following up on that. Current Visit: Yes (4) Anemia Status: Acute Assessment and plan: Hematocrit 24. May be related to her renal failure. 04/24/2017 she was given 1 unit of packed cells yesterday. She feels worse since then. Hematocrit is only 23 today. 04/25/2017 she is still somewhat anemic. Stopping Lovenox because of the nosebleed. Current Visit: Yes (5) Hypertension Status: Acute Assessment and plan: On appropriate medications. 04/23/2017 blood pressure controlled. 04/24/2017 blood pressure controlled with current medications. 04/25/2017 blood pressure in the 130-140 systolic range Current Visit: Yes Specialty Discharge - Follow Up or Referrals Follow up with: Eli West MD [Physician] - (Sleep study- May 19 at 7:15 PM. Stop in admissions. No caffeine or naps before study. Take home meds before coming. Bring something in sleep in. Eat before coming.)
[2017-04-25] MEDS ORDERED: FUROSEMIDE 40 MG/4 ML VIAL IV ONE (12:49)
--- NOTE | 2017-04-25 12:49 | Nephrology Progress Note ---
Nephrology - PN: Subj Interval history: Ms. Baker is seen in follow-up of her chronic renal failure. She is significant shortness of breath some peripheral edema. Zaroxolyn has been started and hopefully will result in some diuresis. She received transfusion yesterday and will check a CBC tomorrow. We will also get a chest x-ray in the morning since she is complaining of more shortness of breath. She does have 1-2 + pretibial edema and her weight is up. Will give another dose of Lasix today. She has been noted to have significant pulmonary hypertension Exam (PN)-Nephrology - Vital Signs Vital signs: Period Temp Pulse Resp BP Sys/Benoit Pulse Ox Last 24 Hr 97.5 F-98.5 F 63-71 16-22 131-158/66-85 96-100 - Lab 04/24/17 05:07 04/25/17 04:48 Most recent lab results Calcium 8.3 MG/DL (8.5-10.1) L 04/25/17 04:48 Magnesium 2.5 MG/DL (1.8-2.4) H 04/24/17 05:07 Specialty Discharge - Follow Up or Referrals Follow up with: Eli West MD [Physician] - (Sleep study- May 19 at 7:15 PM. Stop in admissions. No caffeine or naps before study. Take home meds before coming. Bring something in sleep in. Eat before coming.)
[2017-04-25 15:03] LABS: Basophils % 0.3 % (0.0-0.8); Eosinophils # 0.2 10*3/uL (0.0-0.87); Eosinophils % 2.9 % (0.00-10.9); Hematocrit 26.9 VOL% (35.7-47.0); Hemoglobin 8.7 GM/DL (12.0-16.0); Immature Granulocytes % 0.6 %; Immature Granulocytes Absolute 0.04 #; Lymphocytes # 1.1 10*3/uL (1.4-4.0); Lymphocytes % 16.6 % (21.3-54.2); Mean Corpuscular HGB Conc 32.3 GM/DL (32-36); Mean Corpuscular Hemoglobin 28 PG (27-34); Mean Corpuscular Volume 86.2 FL (87-102); Mean Platelet Volume 9.2 FL (9.6-12.0); Monocytes # 0.9 10*3/uL (0.11-0.8); Monocytes % 13.7 % (1.7-12.7); Neutrophils # 4.5 10*3/uL (1.4-7.4); Neutrophils % 65.9 % (38.7-73.9); Platelet Count 196 T/CUMM (130-400); Red Blood Count 3.12 MC/CUMM (3.8-5.5); Red Cell Distribution Width 16.4 % (9.3-17.3); White Blood Count 6.8 T/CUMM (4-12)
[2017-04-25 17:40] LABS: Cyclic Citrull Peptide Ab < 15.6 U
[2017-04-26 05:42] LABS: Basophils % 0.4 % (0.0-0.8); Eosinophils # 0.2 10*3/uL (0.0-0.87); Eosinophils % 2.6 % (0.00-10.9); Hematocrit 27.7 VOL% (35.7-47.0); Hemoglobin 9.1 GM/DL (12.0-16.0); Immature Granulocytes % 0.5 %; Immature Granulocytes Absolute 0.04 #; Lymphocytes # 1.4 10*3/uL (1.4-4.0); Lymphocytes % 19.5 % (21.3-54.2); Mean Corpuscular HGB Conc 32.9 GM/DL (32-36); Mean Corpuscular Hemoglobin 28 PG (27-34); Mean Platelet Volume 10.1 FL (9.6-12.0); Monocytes % 13.9 % (1.7-12.7); Neutrophils # 4.6 10*3/uL (1.4-7.4); Neutrophils % 63.1 % (38.7-73.9); Platelet Count 232 T/CUMM (130-400); Red Blood Count 3.26 MC/CUMM (3.8-5.5); Red Cell Distribution Width 16.2 % (9.3-17.3); White Blood Count 7.3 T/CUMM (4-12)
[2017-04-26 06:10] LABS: Calcium 8.4 MG/DL (8.5-10.1); Osmolality,Calculated 303.3 MOS/KG (273-304); Potassium 4.4 MMOL/L (3.5-5.1)
[2017-04-26] MEDS: INSULIN REGULAR 100 UNIT/ML SUBCUT SCH ×4 (08:09→20:05)
[2017-04-26] MEDS: POLYETHYLENE GLYCOL POWDER 17 GM PACK PO SCH ×2 (08:52→20:55)
[2017-04-26] MEDS: amLODIPine 10 MG TABLET PO SCH (08:52)
[2017-04-26] MEDS: CETIRIZINE 10 MG TABLET PO SCH (08:52)
[2017-04-26] MEDS: FUROSEMIDE 40 MG TABLET PO SCH (08:52)
[2017-04-26] MEDS: CALCIUM (CARBONATE)/VITAMIN D 600 MG-400 UNIT TABLET PO SCH (08:52)
[2017-04-26] MEDS: DOCUSATE SODIUM 100 MG CAPSULE PO SCH (08:52)
[2017-04-26] MEDS: PANTOPRAZOLE 40 MG TABLET PO SCH (08:52)
[2017-04-26] MEDS: metOLazone 5 MG TABLET PO SCH (08:52)
[2017-04-26] MEDS: GARLIC PO SCH (08:53)
--- NOTE | 2017-04-26 09:56 | XRay Report ---
2 view chest. Indication: Shortness of breath. Comparison: April 22, 2017. The heart is enlarged. There is bilateral hilar prominence, increased from 2010, but similar to the exam from a few days ago. Recent CT showed dilated central pulmonary vasculature, often indicative of pulmonary hypertension. The peripheral pulmonary vasculature is normal. The lung munoz are free of infiltrate. No pneumothorax or pleural effusion. Surgical clips are noted within the upper abdomen. Impression: Cardiomegaly. No significant change compared to the recent previous study. PROCEDURE INTERPRETED AT [facility] DEPARTMENT OF RADIOLOGY Final Report Signed by: Dr. Modesta Mcarthur
--- NOTE | 2017-04-26 10:37 | Nephrology Progress Note ---
Nephrology - PN: Subj Interval history: Ms. Baker is seen in follow-up for chronic renal impairment. Her creatinine is 5.6 up from 5.4. Her edema seems less today and her chest is clear. Chest x -ray demonstrated no gross fluid overload. Oxygen saturation off all oxygen is 96%. She is sitting up in a chair today. Consideration is being given to right heart catheterization to measure her pulmonary artery pressures. A VQ lung scan is demonstrated very low probability for pulmonary emboli. Exam (PN)-Nephrology - Vital Signs Vital signs: Period Temp Pulse Resp BP Sys/Benoit Pulse Ox Last 24 Hr 97.4 F-98.8 F 63-72 18-20 120-172/68-84 96-100 - Lab 04/26/17 04:18 04/26/17 04:18 Most recent lab results Calcium 8.4 MG/DL (8.5-10.1) L 04/26/17 04:18 Magnesium 2.5 MG/DL (1.8-2.4) H 04/24/17 05:07 Specialty Discharge - Follow Up or Referrals Follow up with: Eli West MD [Physician] - (Sleep study- May 19 at 7:15 PM. Stop in admissions. No caffeine or naps before study. Take home meds before coming. Bring something in sleep in. Eat before coming.)
--- NOTE | 2017-04-26 11:15 | Pulmonology Progress Note ---
Pulmonary - PN: Subj Interval history: 66-year-old black female with pulmonary hypertension. We are looking for underlying causes versus primary disease. She has had a sleep study and evaluation for lupus recently. Need final decisions on both of these. Consultants pending. PFTs have been ordered. VQ lung scan was negative. Venous Dopplers negative. Has renal failure with creatinine of about 5.5. This would make catheterization with any dye involved difficult but still could get a right heart cath to measure pressures and test for responsiveness. 04/24/2017 evaluations in progress. Does have a positive rheumatoid factor but other studies negative from a rheumatologic standpoint. Her sleep apnea and does not sound bad enough to cause pulmonary hypertension. PFTs remarkably show moderate restriction. She had a normal high-resolution chest CT as far as lung parenchyma is concerned, so does not have interstitial lung disease. There may be some element of chest wall restriction. Patient has heard herself wheeze from time to time. I do not think this is severe asthma with remodeling based on her history. Patient was transfused yesterday and is been more short of breath since then. We will give her one big dose of Lasix. She has a creatinine of 5.5. Nephrology was following earlier and needs to follow going forward. From pulmonary standpoint I think were at the point of having a right heart cath done to measure pressures and challenge to see if blood pressure would drop with adenosine or like medicine. This will help us decide on treatment. This appears to be primary pulmonary artery hypertension. 04/25/2017 patient has had a bit of a nosebleed. Probably a combination of renal insufficiency anticoagulants and nasal biprong. We will see if we can do without the oxygen. Await word from cardiology on whether a right heart cath is to be done. Agree that she is likely to need dialysis before too much longer. We will stop her Lovenox DVT prophylaxis. 04/26/2017 patient still short of breath with minimal effort. She really has not had any specific treatment for her pulmonary hypertension. I once again had a long discussion with the patient and her about her situation. She has a progressive potentially fatal disorder. She needs a right heart cath to define her pulmonary hypertension and decide on treatment. She and her family had earlier discussed being transferred to another hospital for evaluation. My suggestion to them was that if she does not get the workup here , she should go either to [facility] in [place] or [facility] in [place] for further specialized treatment in a pulmonary hypertension clinic. If she stays here she needs the right heart cath sooner rather than later. Exam (Progress Note) - Constitutional Vitals: Period Temp Pulse Resp BP Sys/Benoit Pulse Ox Last 24 Hr 97.4 F-98.8 F 63-72 18-20 120-172/68-84 96-100 Exam: Patient's alert sitting up. Vital signs are normal. Pupils react to light. Small amount of blood in both nostrils. Throat is clear. Neck supple no bruits. Chest sounds clear. Heart normal rate and rhythm. P2 is slightly loud and I do hear a pulmonic systolic and diastolic murmur. Abdomen soft nontender no masses. Extremities no clubbing cyanosis, trace edema. Results - Labs CBC & BMP: 04/26/17 04:18 04/26/17 04:18 Lab Results: I have reviewed the past 24 hour labs Assessment and Plan (1) Pulmonary hypertension Status: Acute Assessment and plan: Echo indicates pulmonary hypertension with near normal left ventricular function. To see if she has an underlying cause for this or if it is primary. VQ lung scan was negative. Venous Dopplers negative. She has had an abnormal sleep study but I do not know the details of that. She is been evaluated for lupus and I do not know the results of that. She does have renal failure and her creatinine is up to 5 at this point. I will ask Dr. West to see her to follow-up on the possible sleep apnea. Will ask Dr. Fontaine to see her to follow-up on possible lupus. She will likely need a right heart cath to measure pressures directly. I will obtain PFTs to be sure she does not have some underlying chronic lung disease. Her high-resolution chest CT did not show any evidence of interstitial lung disease. 04/23/2017 needs follow-up of studies outlined above. Likely will need right heart cath at some point. 04/24/2017 please see updated under current illness. Probably represents primary pulmonary hypertension. Has positive rheumatoid factor, moderate restrictive PFTs, mild obstructive sleep apnea. Normal high-resolution CT other than enlargement of the pulmonary arteries. Negative VQ lung scan and venous Dopplers. Needs right heart cath to measure pressures directly and determine if it responsive to medicines. Then can make a decision about medications. I discussed the case at length with the patient's daughter. This is somewhat confusing to them, understandably. 04/25/2017 await plans for right heart cath to decide with what to treat her pulmonary hypertension. 04/26/2017 it appears that this is primary pulmonary hypertension. Needs right heart cath to further define and decide on treatment. May have some difficulty getting medications to treat it. Consider referral to pulmonary hypertension clinic either [facility] or [place] Current Visit: Yes (2) Chronic renal insufficiency, stage IV (severe) Status: Chronic Assessment and plan: Creatinine of 5.3. Renal is following. 04/24/[address] Ruff was seeing earlier 04/25/2017 trying to diurese her. Agree with Dr. Kellogg that she may require dialysis to offload fluid 04/26/2017 nephrology following. She has been transfused and diuresed. Current Visit: Yes (3) SULLY (obstructive sleep apnea) Status: Chronic Assessment and plan: Has had a study for sleep apnea and reportedly does have it but it was recommended that she sleep with a tennis ball in the back of her shirt. This would suggest relatively mild sleep apnea which would be positional. Will ask Dr. West to review. 04/23/2017 Dr. West to see today. Patient had study in [employer] and was told to sew a tennis ball in the back of her night shirt. Appears to have mild SULLY based on that report. 04/24/[address] West is following up on that. 04/26/2017 this appears to be mild SULLY and unlikely to be the cause for her PHT. Current Visit: Yes (4) Anemia Status: Acute Assessment and plan: Hematocrit 24. May be related to her renal failure. 04/24/2017 she was given 1 unit of packed cells yesterday. She feels worse since then. Hematocrit is only 23 today. 04/25/2017 she is still somewhat anemic. Stopping Lovenox because of the nosebleed. 04/26/2017 hematocrit 27 Current Visit: Yes (5) Hypertension Status: Acute Assessment and plan: On appropriate medications. 04/23/2017 blood pressure controlled. 04/24/2017 blood pressure controlled with current medications. 04/25/2017 blood pressure in the 130-140 systolic range 04/26/2017 blood pressure controlled. Current Visit: Yes Specialty Discharge - Follow Up or Referrals Follow up with: Eli West MD [Physician] - (Sleep study- May 19 at 7:15 PM. Stop in admissions. No caffeine or naps before study. Take home meds before coming. Bring something in sleep in. Eat before coming.)
[2017-04-26] MEDS: ACETAMINOPHEN 325 MG TABLET PO PRN (11:41)
--- NOTE | 2017-04-26 19:56 | Hospitalist Consult Note ---
Assessment and Plan (1) Pulmonary hypertension Status: Acute Assessment and plan: Followed by pulmonary as well as cardiology. Current Visit: Yes (2) Chronic renal insufficiency, stage IV (severe) Status: Chronic Assessment and plan: Followed by nephrology. Current Visit: Yes (3) SULLY (obstructive sleep apnea) Status: Chronic Current Visit: Yes (4) Anemia Status: Chronic Current Visit: Yes Qualifiers: Chronic kidney disease stage: stage 5, not on chronic dialysis (5) Hypertension Status: Chronic Assessment and plan: Continue with current antihypertensive medicines. Current Visit: Yes Qualifiers: Hypertension type: essential hypertension Qualified Code(s): I10 - Essential (primary) hypertension History of Present Illness - Consult Narrative Reason for consult: Hypertension History of present illness: Ms. Baker is a 66 year old female with multiple medical problems including pulmonary hypertension ,hypertension, diabetes, chronic kidney disease stage V, anemia who was admitted for shortness of breath and hypertension. Patient has had further workup by cardiology and has been followed by cardiology and nephrology and pulmonary. Further workup is being done for her pulmonary hypertension as well as her underlying chronic kidney disease. Medicine has been consulted for hypertension. The patient has had intermittent shortness of breath. On interview today she denies any complaints. Blood pressure has been 150s over 60s. At present she is on several antihypertensive medications. Further adjustments have been made by consultants. CC: Meena Madsen, DO - Home Medications and Allergies Home Medications: Home Medications Medication Instructions Recorded Confirmed Type Calcium (Carb)/Vit D 600-400 1 tablet PO DAILY 04/22/17 04/22/17 History [Caltrate 600 + D] Cetirizine Tab [ZyrTEC Tab] 10 mg PO DAILY 04/22/17 04/22/17 History Docusate Sodium Cap [Colace Cap] 200 mg PO DAILY 04/22/17 04/22/17 History Garlic 1 each PO DAILY 04/22/17 04/22/17 History Minoxidil 2.5 mg PO DAILY 04/22/17 04/22/17 History Polyethylene Glycol Powder 17 gm PO BID 04/22/17 04/22/17 History [Miralax] amLODIPine [Norvasc] 10 mg PO DAILY 04/22/17 04/22/17 History cloNIDine [Clonidine 0.3 mg/24 hr 1 patch TRANSDERM Q704/22/17 04/22/17 History Patch] hydrALAZINE TAB [Apresoline Tab] 50 mg PO BID 04/22/17 04/22/17 History Senna Tab [Senokot] 17.2 mg PO DAILY 04/23/17 04/23/17 History Allergies/Adverse Reactions: Allergies Allergy/AdvReac Type Severity Reaction Status Date / Time codeine AdvReac Mild Vomiting Verified 04/22/17 11:55 Medical,Surgical,& Family Hx - Medical History Cardio: History of: Hypertension HEENT: History of: Dental Problems (Upper/Lower Dentures) Endocrine: History of: Dyslipidemia, Endocrine Problems (Hypoglycemia) Respiratory: History of: Obstructive Sleep Apnea, Pneumonia Renal: History of: Renal (Kidney) Cancer ([place] [facility]?) Gastrointestinal: History of: Diverticulitis/ Diverticulosis, GERD, Hemorrhoids , Polyps Musculoskeletal: History of: Back/Neck Problems, Osteoporosis, Musculoskeletal Problems (Spinal Stenosis) - Surgical History Thoracic Surgeries: Surgical HX of;: Kidney (Renal Surgery) (Kidney biopsy) Patient denies;: Organ Transplant HEENT Surgeries: Surgical HX of: Tonsilectomy & Adenoidectomy Abdominal Surgeries: Surgical HX of: Appendectomy, Cholecystectomy, Colonoscopy ( (Year Unknown)), EGD (, 2016, Polyp Removal) Reproductive Surgeries: Surgical HX of;: Hysterectomy, Tubal Ligation Orthopedic Surgeries: Surgical HX of;: Total Hip Replacement (Right Knee Replacement ([place])), Total Knee Replacement (Right) - Family History Family History: Reports;: Family Diabetes (Father, Brother), Family Hypertension (Mother, Maternal Grandfather), Family Stroke (Mother) - Social History Smoking Status: Never smoker Frequency of Alcohol Use: None Type of Drug Use: None Exam - Constitutional Vitals: Period Temp Pulse Resp BP Sys/Benoit Pulse Ox Last 24 Hr 97.4 F-98.2 F 63-72 18-20 120-183/68-91 98-100 General appearance: over weight - Head Head exam: Present: normal inspection - Eye Pupils: Present: OG - Respiratory Respiratory exam: Present: clear to auscultation bilaterally - Cardiovascular Cardiovascular exam: Present: regular rate and rhythm - GI/Abdominal GI/Abdominal exam: Present: normal bowel sounds - Extremities Exam Extremities exam: Present: full ROM - Back Exam Back exam: Present: normal inspection - Neurological Exam Neurological exam: Present: alert, oriented X3 - Psychiatric Psychiatric exam: Present: normal affect, normal mood Results - Labs CBC & BMP: 04/26/17 04:18 04/26/17 04:18 Specialty Discharge - Follow Up or Referrals Follow up with: Eli West MD [Physician] - (Sleep study- May 19 at 7:15 PM. Stop in admissions. No caffeine or naps before study. Take home meds before coming. Bring something in sleep in. Eat before coming.)
[2017-04-27 07:07] LABS: Calcium 8.6 MG/DL (8.5-10.1); Osmolality,Calculated 304.3 MOS/KG (273-304); Potassium 4.3 MMOL/L (3.5-5.1)
[2017-04-27] MEDS: INSULIN REGULAR 100 UNIT/ML SUBCUT SCH ×4 (07:30→20:39)
--- NOTE | 2017-04-27 08:19 | Pulmonology Progress Note ---
Pulmonary - PN: Subj Interval history: 66-year-old black female with pulmonary hypertension. We are looking for underlying causes versus primary disease. She has had a sleep study and evaluation for lupus recently. Need final decisions on both of these. Consultants pending. PFTs have been ordered. VQ lung scan was negative. Venous Dopplers negative. Has renal failure with creatinine of about 5.5. This would make catheterization with any dye involved difficult but still could get a right heart cath to measure pressures and test for responsiveness. 04/24/2017 evaluations in progress. Does have a positive rheumatoid factor but other studies negative from a rheumatologic standpoint. Her sleep apnea and does not sound bad enough to cause pulmonary hypertension. PFTs remarkably show moderate restriction. She had a normal high-resolution chest CT as far as lung parenchyma is concerned, so does not have interstitial lung disease. There may be some element of chest wall restriction. Patient has heard herself wheeze from time to time. I do not think this is severe asthma with remodeling based on her history. Patient was transfused yesterday and is been more short of breath since then. We will give her one big dose of Lasix. She has a creatinine of 5.5. Nephrology was following earlier and needs to follow going forward. From pulmonary standpoint I think were at the point of having a right heart cath done to measure pressures and challenge to see if blood pressure would drop with adenosine or like medicine. This will help us decide on treatment. This appears to be primary pulmonary artery hypertension. 04/25/2017 patient has had a bit of a nosebleed. Probably a combination of renal insufficiency anticoagulants and nasal biprong. We will see if we can do without the oxygen. Await word from cardiology on whether a right heart cath is to be done. Agree that she is likely to need dialysis before too much longer. We will stop her Lovenox DVT prophylaxis. 04/26/2017 patient still short of breath with minimal effort. She really has not had any specific treatment for her pulmonary hypertension. I once again had a long discussion with the patient and her about her situation. She has a progressive potentially fatal disorder. She needs a right heart cath to define her pulmonary hypertension and decide on treatment. She and her family had earlier discussed being transferred to another hospital for evaluation. My suggestion to them was that if she does not get the workup here , she should go either to [facility] in [place] or [facility] in [place] for further specialized treatment in a pulmonary hypertension clinic. If she stays here she needs the right heart cath sooner rather than later. 04/27/2017 patient was what appears to be primary pulmonary hypertension. In need of a right heart cath to quantify and give medication trial. Await cardiology input. It would also be acceptable for her to be referred to [facility] or [facility] pulmonary hypertension clinics if that is what she wants. Exam (Progress Note) - Constitutional Vitals: Period Temp Pulse Resp BP Sys/Benoit Pulse Ox Last 24 Hr 97.5 F-98.2 F 62-87 18-24 140-183/68-91 96-100 Exam: Patient's alert sitting up. Vital signs are normal. Pupils react to light. Small amount of blood in both nostrils. Throat is clear. Neck supple no bruits. Chest sounds clear. Heart normal rate and rhythm. P2 is slightly loud and I do hear a pulmonic systolic and diastolic murmur. Abdomen soft nontender no masses. Extremities no clubbing cyanosis, trace edema. Results - Labs CBC & BMP: 04/26/17 04:18 04/27/17 06:30 Lab Results: I have reviewed the past 24 hour labs Assessment and Plan (1) Pulmonary hypertension Status: Acute Assessment and plan: Echo indicates pulmonary hypertension with near normal left ventricular function. To see if she has an underlying cause for this or if it is primary. VQ lung scan was negative. Venous Dopplers negative. She has had an abnormal sleep study but I do not know the details of that. She is been evaluated for lupus and I do not know the results of that. She does have renal failure and her creatinine is up to 5 at this point. I will ask Dr. West to see her to follow-up on the possible sleep apnea. Will ask Dr. Fontaine to see her to follow-up on possible lupus. She will likely need a right heart cath to measure pressures directly. I will obtain PFTs to be sure she does not have some underlying chronic lung disease. Her high-resolution chest CT did not show any evidence of interstitial lung disease. 04/23/2017 needs follow-up of studies outlined above. Likely will need right heart cath at some point. 04/24/2017 please see updated under current illness. Probably represents primary pulmonary hypertension. Has positive rheumatoid factor, moderate restrictive PFTs, mild obstructive sleep apnea. Normal high-resolution CT other than enlargement of the pulmonary arteries. Negative VQ lung scan and venous Dopplers. Needs right heart cath to measure pressures directly and determine if it responsive to medicines. Then can make a decision about medications. I discussed the case at length with the patient's daughter. This is somewhat confusing to them, understandably. 04/25/2017 await plans for right heart cath to decide with what to treat her pulmonary hypertension. 04/26/2017 it appears that this is primary pulmonary hypertension. Needs right heart cath to further define and decide on treatment. May have some difficulty getting medications to treat it. Consider referral to pulmonary hypertension clinic either in [place] or [place] 04/27/2017 await word from cardiology on right heart cath. Again it would be acceptable for her to go to a pulmonary hypertension clinic at [facility] or [facility] if that is what she prefers. Current Visit: Yes (2) Chronic renal insufficiency, stage IV (severe) Status: Chronic Assessment and plan: Creatinine of 5.3. Renal is following. 04/24/[address] Ruff was seeing earlier 04/25/2017 trying to diurese her. Agree with Dr. Kellogg that she may require dialysis to offload fluid 04/26/2017 nephrology following. She has been transfused and diuresed. 04/27/2017 followed by nephrology. Current Visit: Yes (3) SULLY (obstructive sleep apnea) Status: Chronic Assessment and plan: Has had a study for sleep apnea and reportedly does have it but it was recommended that she sleep with a tennis ball in the back of her shirt. This would suggest relatively mild sleep apnea which would be positional. Will ask Dr. West to review. 04/23/2017 Dr. West to see today. Patient had study in [employer] and was told to sew a tennis ball in the back of her night shirt. Appears to have mild SULLY based on that report. 04/24/[address] West is following up on that. 04/26/2017 this appears to be mild SULLY and unlikely to be the cause for her PHT. Current Visit: Yes (4) Anemia Status: Chronic Assessment and plan: Hematocrit 24. May be related to her renal failure. 04/24/2017 she was given 1 unit of packed cells yesterday. She feels worse since then. Hematocrit is only 23 today. 04/25/2017 she is still somewhat anemic. Stopping Lovenox because of the nosebleed. 04/26/2017 hematocrit 27 04/27/2017 no CBC today Current Visit: Yes Qualifiers: Chronic kidney disease stage: stage 5, not on chronic dialysis (5) Hypertension Status: Chronic Assessment and plan: On appropriate medications. 04/23/2017 blood pressure controlled. 04/24/2017 blood pressure controlled with current medications. 04/25/2017 blood pressure in the 130-140 systolic range 04/26/2017 blood pressure controlled. 04/27/1970 blood pressure fairly well controlled. Current Visit: Yes Qualifiers: Hypertension type: essential hypertension Qualified Code(s): I10 - Essential (primary) hypertension Specialty Discharge - Follow Up or Referrals Follow up with: Eli West MD [Physician] - (Sleep study- May 19 at 7:15 PM. Stop in admissions. No caffeine or naps before study. Take home meds before coming. Bring something in sleep in. Eat before coming.)
[2017-04-27] MEDS: FUROSEMIDE 40 MG TABLET PO SCH (09:00)
[2017-04-27] MEDS ORDERED: MAGNESIUM SULF RIDER 2 GM in PREMIX 1 EACH IV PRN (09:35)
[2017-04-27] MEDS ORDERED: DIAZEPAM 5 MG TABLET PO ONE (09:35)
[2017-04-27] MEDS ORDERED: diphenhydrAMINE CAP 25 MG CAPSULE PO ONE (09:35)
[2017-04-27] MEDS ORDERED: POTASSIUM CHLORIDE RIDER 10 MEQ in PREMIX 1 EACH IV PRN (09:35)
[2017-04-27 10:15] LABS: Basophils % 0.3 % (0.0-0.8); Eosinophils # 0.2 10*3/uL (0.0-0.87); Eosinophils % 2.7 % (0.00-10.9); Hematocrit 29.9 VOL% (35.7-47.0); Hemoglobin 9.8 GM/DL (12.0-16.0); Immature Granulocytes % 0.5 %; Immature Granulocytes Absolute 0.04 #; Lymphocytes # 1.6 10*3/uL (1.4-4.0); Lymphocytes % 21.1 % (21.3-54.2); Mean Corpuscular HGB Conc 32.8 GM/DL (32-36); Mean Corpuscular Hemoglobin 28 PG (27-34); Mean Corpuscular Volume 84.5 FL (87-102); Mean Platelet Volume 9.3 FL (9.6-12.0); Monocytes # 1.1 10*3/uL (0.11-0.8); Monocytes % 14.4 % (1.7-12.7); Neutrophils # 4.5 10*3/uL (1.4-7.4); Platelet Count 238 T/CUMM (130-400); Red Blood Count 3.54 MC/CUMM (3.8-5.5); Red Cell Distribution Width 15.8 % (9.3-17.3); White Blood Count 7.4 T/CUMM (4-12)
[2017-04-27] MEDS: PANTOPRAZOLE 40 MG TABLET PO SCH (10:21)
[2017-04-27] MEDS ORDERED: HEPARIN/NACL 0.9% 2 UNITS/ML 500 ML IV ONE (10:38)
[2017-04-27] MEDS ORDERED: LIDOCAINE 1% 20 ML VIAL ONE (10:38)
[2017-04-27] MEDS ORDERED: MIDAZOLAM 2 MG/2 ML VIAL ONE (10:54)
[2017-04-27] MEDS ORDERED: fentaNYL 100 MCG/2 ML VIAL ONE (10:54)
--- NOTE | 2017-04-27 11:06 | History and Physical Update ---
Sedation H&P Update - History and Physical H&P was reviewed, the patient examined and there: are no changes in the patients condition since last H&P was completed. - Dictation Physical: refer to scanned H&P, refer to H&P completed by admitting physician - Physical Exam Mental Status: alert and oriented Heart: regular rate and rhythm Lung: clear to auscultation Abdomen: within normal limits Vitals: within normal limits - Sedation Plan for Sedation: minimal Patient Consent: Procedure disscussed with patient and patinet has consented., Risks and benefits were discussed with patient,including infection,, bleeding, injury to surrounding structures, seizure, temporary nerve, Patient understands and accepts potential risks/benefits and agrees to, proceed. ASA Class: IV Airway Assessment: Class III: Soft palate, base of uvula visible
[2017-04-27] MEDS ORDERED: ADENOSINE 90 MG/30 ML VIAL IV ONE (11:07)
--- NOTE | 2017-04-27 11:26 | Cardiac Catheterization ---
Date of Procedure:: 04/27/17 Pre-op Diagnosis: Pulmonary hypertension Post-op diagnosis: same Procedure: Procedure: 1. Right heart catheterization resting hemodynamics and cardiac output by thermodilution After signed informed consent was taken to the patient was taken to cardiac catheterization lab for the intent of assessing her right-sided pressures her PA pressure her wedge pressure cardiac output and also assess reversibility of pulmonary hypertension. Informed consent was taken from the patient. She was examined in the Rover Tender before the procedure. 6 cc of 1% lidocaine infiltrated skin and subcu tissue overlying the right femoral vein. Seldinger technique was utilized to access the vein, 035 J-wire was advanced into the central venous system. A small skin incision was made a 7 Georgian sheath was placed over the wire. The wire and dilator were removed and a balloon tipped flow-directed [place] Vini catheter was advanced into the pulmonary artery without difficulty. PA pressure measurements were performed. He was advanced to the wedge position wedge pressure measurements were performed. At this time we are set up for thermal dilution and thermodilution cardiac outputs were measured. The catheter was then pulled back RV and RA pressure measurements were performed the catheter was then removed and manual compression was used for hemostasis at the venous access site. Findings patient had significant respiratory variation in her PA pressure PA pressure ranged from 30/12-45/18. Pulmonary capillary wedge pressure ranged from 17-23 with respiratory variation RV pressure was 45/15 with a mean of 21. Right atrial pressure was 21/18. Cardiac output by thermodilution was 4.42 L/min with a stroke volume of 74.13 mL per beat. Peripheral vascular resistance total was 380.93 Dyne in pulmonary vascular resistance was 107.39 Dyne Assessment: 1. Normal cardiac output 2. Mild pulmonary hypertension and mildly elevated end-diastolic pressures. These pressures are significantly lower than estimated on the right side by transthoracic echocardiography. I am not sure if this represents improvement with therapy or inaccurate measurement in the echo lab. Post right heart cath I realized that the diastolics and means were all very close but had some separation. Consider constrictive pericarditis as well. Implants: None Anesthesia: minimal conscious sedation Surgeon / Physician: Meena Madsen Utility Inspector: none Estimated blood loss: none Specimens: none sent Condition: stable Disposition: floor - Medications / Follow-up Referrals: Eli West MD [Physician] - (Sleep study- May 19 at 7:15 PM. Stop in admissions. No caffeine or naps before study. Take home meds before coming. Bring something in sleep in. Eat before coming.)
--- NOTE | 2017-04-27 11:49 | Rheumatology Progress Note ---
Assessment and Plan (1) Pulmonary hypertension Status: Acute Assessment and plan: Mrs. Baker a 66 Y AAF is admitted for new onset chest pain and diagnosed with New onset Pulmonary artery hypertension. She has abnormal both ESR and CRP which is most likely related to underlying inflammatory process. Condition like TAKAYASU VASCULITIS involve large vessels including aorta and its branching including Pulmonary artery and presents with PAH which is documented in case report. Although Takayasu is disease of young people of age less than 40 years but it may involves patients above age of 50 Y in 15% of cases. Giant cell arteritis may presents as involvement of thoracic aorta and its branches. She has RF positive which almost excludes Giant cell arteritis. *I recommend getting MRA with contrast to evaluate her aorta and its branches for suspected underlying Large vessel vasculitis like Takayasu or GCA. *I have evaluated her for SLE, Sjogren, Scleroderma, Myositis and ANCA vasculitis causing Pulmonary artery hypertension. *Decide management further based on her blood work up results. Discussed with patient and her in details my assessment and plan. I am thankful to primary team to provide me opportunity to participate in patient management. Current Visit: Yes (2) Chronic renal insufficiency, stage IV (severe) Status: Chronic Current Visit: Yes Rheumatology Subjective Interval history: Patient is seen and examined today. She is stable and scheduled for Right heart cath. No febrile illness or skin rash. Blood work up done so far reported Positive RF of 145 titer which is significant. Abnormal ESR and CRP both raises concern for underlying inflammatory process for her current symptoms. SSA, SSB, [employer] and Soto are negative which almost exclude SLE, Sjogren and Myositis. Serology work up for ANCA is pending. Exam Rheumatology - Constitutional Vitals: Vital Signs Temp Pulse Resp BP Pulse Ox 04/27/17 10:20 20 04/27/17 09:35 20 04/27/17 07:15 98.2 F 64 20 174/83 100 04/27/17 05:00 20 04/27/17 04:00 97.8 F 87 21 140/68 97 04/27/17 03:00 04/27/17 02:00 04/27/17 01:00 04/27/17 00:00 97.5 F L 62 19 165/77 99 04/26/17 23:00 04/26/17 20:00 97.7 F 86 21 144/77 96 04/26/17 17:56 18 04/26/17 16:50 20 04/26/17 14:52 20 04/26/17 14:05 18 04/26/17 13:50 98.1 F 68 18 154/70 99 04/26/17 13:04 20 04/26/17 11:55 97.9 F 69 18 183/91 99 General appearance: no acute distress, over weight - Head Head exam: Present: normal inspection - Eye Eye exam: Present: EOMI Pupils: Present: OG - ENT ENT exam: Present: normal exam, normal oropharynx - Neck Neck exam: Present: normal inspection. Absent: lymphadenopathy, thyromegaly - Respiratory Respiratory exam: Present: clear to auscultation bilaterally. Absent: rales, rhonchi, wheezes - Cardiovascular Cardiovascular exam: Present: regular rate and rhythm. Absent: rubs, systolic murmur - GI/Abdominal GI/Abdominal exam: Present: normal bowel sounds. Absent: ascites, distended, tenderness, rebound - Extremities Exam Extremities exam: Present: normal inspection, full ROM - Back Exam Back exam: Present: normal inspection - Neurological Exam Neurological exam: Present: alert, oriented X3, CN II-XII intact, reflexes normal - Skin Skin exam: Present: normal color - Lymphatic Lymphatic: Absent: aricular lymphadenopathy, axillary lymphadenopathy Results - Labs CBC & BMP: 04/27/17 09:58 04/27/17 06:30 Specialty Discharge - Follow Up or Referrals Follow up with: Eli West MD [Physician] - (Sleep study- May 19 at 7:15 PM. Stop in admissions. No caffeine or naps before study. Take home meds before coming. Bring something in sleep in. Eat before coming.)
--- NOTE | 2017-04-27 13:17 | Nephrology Progress Note ---
Nephrology - PN: Subj Interval history: She has just undergone right heart cath. No shortness of breath at rest. Exam (PN)-Nephrology - Vital Signs Vital signs: Period Temp Pulse Resp BP Sys/Benoit Pulse Ox Last 24 Hr 97.5 F-98.2 F 62-87 18-24 140-174/68-83 96-100 Exam: ENT: Normal Cardiovascular: Regular rate and rhythm. No murmur rub or gallop Lungs: Clear Extremities: 1-2+ edema - Lab 04/27/17 09:58 04/27/17 06:30 Most recent lab results Calcium 8.6 MG/DL (8.5-10.1) 04/27/17 06:30 Magnesium 2.5 MG/DL (1.8-2.4) H 04/27/17 09:59 Assessment and Plan (1) Chronic kidney disease, stage V Status: Acute Assessment and plan: 66-year-old woman with: * CRF stage V. She has near ESRD. I discussed dialysis options with her. She agrees to meet with the dialysis education nurse. Once she has chosen any modality, access will be placed. * Renal cell carcinoma. Status post cryoablation 2013. She states MRI at [facility] last month was negative * Pulmonary hypertension. Right heart cath just done. Advanced renal failure would not tolerate contrast including gadolinium without dialysis * Anemia. She is receiving her second unit RBC * Hypertension * Chest pain. Evaluated by cardiology Current Visit: Yes (2) Anemia Status: Chronic Current Visit: Yes Qualifiers: Chronic kidney disease stage: stage 5, not on chronic dialysis (3) Chest pain Status: Acute Current Visit: Yes (4) Hypertension Status: Chronic Current Visit: Yes Qualifiers: Hypertension type: essential hypertension Qualified Code(s): I10 - Essential (primary) hypertension (5) Pulmonary hypertension Status: Acute Current Visit: Yes (6) SULLY (obstructive sleep apnea) Status: Chronic Current Visit: Yes Specialty Discharge - Follow Up or Referrals Follow up with: Eli West MD [Physician] - (Sleep study- May 19 at 7:15 PM. Stop in admissions. No caffeine or naps before study. Take home meds before coming. Bring something in sleep in. Eat before coming.)
[2017-04-27] MEDS: CALCIUM (CARBONATE)/VITAMIN D 600 MG-400 UNIT TABLET PO SCH (14:55)
[2017-04-27] MEDS: amLODIPine 10 MG TABLET PO SCH (14:55)
[2017-04-27] MEDS: metOLazone 5 MG TABLET PO SCH (14:57)
[2017-04-27] MEDS: CETIRIZINE 10 MG TABLET PO SCH (14:57)
[2017-04-27] MEDS: POLYETHYLENE GLYCOL POWDER 17 GM PACK PO SCH ×2 (15:02→20:42)
[2017-04-27] MEDS: DOCUSATE SODIUM 100 MG CAPSULE PO SCH (15:16)
[2017-04-27] MEDS: ACETAMINOPHEN 325 MG TABLET PO PRN (20:42)
[2017-04-27] MEDS: GARLIC PO SCH (22:13)
[2017-04-28] MEDS: INSULIN REGULAR 100 UNIT/ML SUBCUT SCH ×2 (07:30→11:30)
[2017-04-28] MEDS: amLODIPine 10 MG TABLET PO SCH (08:25)
[2017-04-28] MEDS: DOCUSATE SODIUM 100 MG CAPSULE PO SCH (08:26)
[2017-04-28] MEDS: PANTOPRAZOLE 40 MG TABLET PO SCH (08:26)
[2017-04-28] MEDS: CALCIUM (CARBONATE)/VITAMIN D 600 MG-400 UNIT TABLET PO SCH (08:26)
[2017-04-28] MEDS: FUROSEMIDE 40 MG TABLET PO SCH (08:26)
[2017-04-28] MEDS: CETIRIZINE 10 MG TABLET PO SCH (08:26)
[2017-04-28] MEDS: metOLazone 5 MG TABLET PO SCH (08:27)
[2017-04-28] MEDS: GARLIC PO SCH (08:27)
[2017-04-28] MEDS: POLYETHYLENE GLYCOL POWDER 17 GM PACK PO SCH (08:29)
--- NOTE | 2017-04-28 09:18 | Pulmonology Progress Note ---
Pulmonary - PN: Subj Interval history: 66-year-old black female with pulmonary hypertension. We are looking for underlying causes versus primary disease. She has had a sleep study and evaluation for lupus recently. Need final decisions on both of these. Consultants pending. PFTs have been ordered. VQ lung scan was negative. Venous Dopplers negative. Has renal failure with creatinine of about 5.5. This would make catheterization with any dye involved difficult but still could get a right heart cath to measure pressures and test for responsiveness. 04/24/2017 evaluations in progress. Does have a positive rheumatoid factor but other studies negative from a rheumatologic standpoint. Her sleep apnea and does not sound bad enough to cause pulmonary hypertension. PFTs remarkably show moderate restriction. She had a normal high-resolution chest CT as far as lung parenchyma is concerned, so does not have interstitial lung disease. There may be some element of chest wall restriction. Patient has heard herself wheeze from time to time. I do not think this is severe asthma with remodeling based on her history. Patient was transfused yesterday and is been more short of breath since then. We will give her one big dose of Lasix. She has a creatinine of 5.5. Nephrology was following earlier and needs to follow going forward. From pulmonary standpoint I think were at the point of having a right heart cath done to measure pressures and challenge to see if blood pressure would drop with adenosine or like medicine. This will help us decide on treatment. This appears to be primary pulmonary artery hypertension. 04/25/2017 patient has had a bit of a nosebleed. Probably a combination of renal insufficiency anticoagulants and nasal biprong. We will see if we can do without the oxygen. Await word from cardiology on whether a right heart cath is to be done. Agree that she is likely to need dialysis before too much longer. We will stop her Lovenox DVT prophylaxis. 04/26/2017 patient still short of breath with minimal effort. She really has not had any specific treatment for her pulmonary hypertension. I once again had a long discussion with the patient and her about her situation. She has a progressive potentially fatal disorder. She needs a right heart cath to define her pulmonary hypertension and decide on treatment. She and her family had earlier discussed being transferred to another hospital for evaluation. My suggestion to them was that if she does not get the workup here , she should go either to [facility] in [place] or [facility] in [place] for further specialized treatment in a pulmonary hypertension clinic. If she stays here she needs the right heart cath sooner rather than later. 04/27/2017 patient was what appears to be primary pulmonary hypertension. In need of a right heart cath to quantify and give medication trial. Await cardiology input. It would also be acceptable for her to be referred to [facility] or [facility] pulmonary hypertension clinics if that is what she wants. 04/28/2017 right heart cath showed peak pulmonary artery pressure only about 40 and the patient has an elevated LVEDP. Thus this is not primary pulmonary hypertension. It is secondary to left heart disease and/or fluid overload associated with her renal failure. She does not need to go to a pulmonary hypertension clinic. She does not need specific medications for pulmonary hypertension. She does not need the MRA for giant cell arteritis. She needs her heart and kidneys managed. From my standpoint nothing further to add. I will sign off. Exam (Progress Note) - Constitutional Vitals: Period Temp Pulse Resp BP Sys/Benoit Pulse Ox Last 24 Hr 97.9 F-98.8 F 62-98 18-20 113-172/68-89 96-100 Exam: Patient's alert sitting up. Vital signs are normal. Pupils react to light. Small amount of blood in both nostrils. Throat is clear. Neck supple no bruits. Chest sounds clear. Heart normal rate and rhythm. P2 is slightly loud and I do hear a pulmonic systolic and diastolic murmur. Abdomen soft nontender no masses. Extremities no clubbing cyanosis, trace edema. Results - Labs CBC & BMP: 04/27/17 09:58 04/27/17 06:30 Lab Results: I have reviewed the past 24 hour labs Assessment and Plan (1) Pulmonary hypertension Status: Acute Assessment and plan: Echo indicates pulmonary hypertension with near normal left ventricular function. To see if she has an underlying cause for this or if it is primary. VQ lung scan was negative. Venous Dopplers negative. She has had an abnormal sleep study but I do not know the details of that. She is been evaluated for lupus and I do not know the results of that. She does have renal failure and her creatinine is up to 5 at this point. I will ask Dr. West to see her to follow-up on the possible sleep apnea. Will ask Dr. Zhen to see her to follow-up on possible lupus. She will likely need a right heart cath to measure pressures directly. I will obtain PFTs to be sure she does not have some underlying chronic lung disease. Her high-resolution chest CT did not show any evidence of interstitial lung disease. 04/23/2017 needs follow-up of studies outlined above. Likely will need right heart cath at some point. 04/24/2017 please see updated under current illness. Probably represents primary pulmonary hypertension. Has positive rheumatoid factor, moderate restrictive PFTs, mild obstructive sleep apnea. Normal high-resolution CT other than enlargement of the pulmonary arteries. Negative VQ lung scan and venous Dopplers. Needs right heart cath to measure pressures directly and determine if it responsive to medicines. Then can make a decision about medications. I discussed the case at length with the patient's daughter. This is somewhat confusing to them, understandably. 04/25/2017 await plans for right heart cath to decide with what to treat her pulmonary hypertension. 04/26/2017 it appears that this is primary pulmonary hypertension. Needs right heart cath to further define and decide on treatment. May have some difficulty getting medications to treat it. Consider referral to pulmonary hypertension clinic either in [place] or [place] 04/27/2017 await word from cardiology on right heart cath. Again it would be acceptable for her to go to a pulmonary hypertension clinic at [facility] or [facility] if that is what she prefers. 04/28/2017 right heart cath indicates that this is not primary pulmonary hypertension. Peak pulmonary artery pressure was only about 40 with an LVEDP of around 20. Thus she has secondary pulmonary hypertension caused by left heart disease and/or fluid retention related to her renal failure. She does not need further tests for pulmonary hypertension such as the MRA for giant cell arteritis. I will sign off. Please call if needed further Current Visit: Yes (2) Chronic renal insufficiency, stage IV (severe) Status: Chronic Assessment and plan: Creatinine of 5.3. Renal is following. 04/24/[address] Ruff was seeing earlier 04/25/2017 trying to diurese her. Agree with Dr. Kellogg that she may require dialysis to offload fluid 04/26/2017 nephrology following. She has been transfused and diuresed. 04/27/2017 followed by nephrology. 04/28/2017 defer to nephrology Current Visit: Yes (3) SULLY (obstructive sleep apnea) Status: Chronic Assessment and plan: Has had a study for sleep apnea and reportedly does have it but it was recommended that she sleep with a tennis ball in the back of her shirt. This would suggest relatively mild sleep apnea which would be positional. Will ask Dr. West to review. 04/23/2017 Dr. West to see today. Patient had study in [employer] and was told to sew a tennis ball in the back of her night shirt. Appears to have mild SULLY based on that report. 04/24/[address] West is following up on that. 04/26/2017 this appears to be mild SULLY and unlikely to be the cause for her PHT. 04/28/2017 this is mild and needs further evaluation. Current Visit: Yes (4) Anemia Status: Chronic Assessment and plan: Hematocrit 24. May be related to her renal failure. 04/24/2017 she was given 1 unit of packed cells yesterday. She feels worse since then. Hematocrit is only 23 today. 04/25/2017 she is still somewhat anemic. Stopping Lovenox because of the nosebleed. 04/26/2017 hematocrit 27 04/27/2017 no CBC today 04/28/2017 hematocrit 29.9 yesterday Current Visit: Yes Qualifiers: Chronic kidney disease stage: stage 5, not on chronic dialysis (5) Hypertension Status: Chronic Assessment and plan: On appropriate medications. 04/23/2017 blood pressure controlled. 04/24/2017 blood pressure controlled with current medications. 04/25/2017 blood pressure in the 130-140 systolic range 04/26/2017 blood pressure controlled. 04/27/1970 blood pressure fairly well controlled. 04/28/2017 blood pressure about 140/80. This is good control. Current Visit: Yes Qualifiers: Hypertension type: essential hypertension Qualified Code(s): I10 - Essential (primary) hypertension Specialty Discharge - Follow Up or Referrals Follow up with: Eli West MD [Physician] - (Sleep study- May 19 at 7:15 PM. Stop in admissions. No caffeine or naps before study. Take home meds before coming. Bring something in sleep in. Eat before coming.)
[2017-04-28 11:28] VITALS: BP 153/84
--- NOTE | 2017-04-28 11:46 | Hospitalist Progress Note ---
Hospitalist: Subjective Interval history: Mrs Baker has told me for 2 days that she is going to be discharged. Her medical problems appear well addressed by her other physicians. Hospitalist will sign off. Exam - Constitutional Vitals: Period Temp Pulse Resp BP Sys/Benoit Pulse Ox Last 24 Hr 97.9 F-98.8 F 62-98 16-20 113-172/68-89 96-100 Results - Labs CBC & BMP: 04/27/17 09:58 04/27/17 06:30 Specialty Discharge - Follow Up or Referrals Follow up with: Eli West MD [Physician] - (Sleep study- May 19 at 7:15 PM. Stop in admissions. No caffeine or naps before study. Take home meds before coming. Bring something in sleep in. Eat before coming.)
--- NOTE | 2017-04-28 12:34 | Discharge Summary ---
Hospital Course - Hospital Course Hospital Course: Ms. Baker is admitted from the office where I saw her for her primary care physician Dr. Van Ortega. She clearly had right-sided heart failure and by exam had severe dyspnea. Echocardiogram in the office showed severe or moderate to severe pulmonary hypertension. She was admitted to the hospital she was seen by her shipping checker Dr. Thomas Ruff also seen by Dr. edna Houser from pulmonary medicine had a workup for pulmonary hypertension was also kindly followed by the hospitalist to help with her medical problems. She ultimately underwent right heart catheterization on 04/27/2017 without apparent complication and her right-sided pressures were significantly better than estimated by transthoracic echo before therapy was initiated. She did have closely similar wedge pressure right-sided pressure in right ventricular end- diastolic pressure making the possibility of constriction pericarditis or cardiac restriction a concern. She also had significant respiratory variation in her right sided pressures. This was really not noticed until after pressure measurements were performed on the right she did not have simultaneously RV and LV catheters placed which could potentially have clarify the situation. We did not take the patient back to the lab for that. Plans are to have her follow-up with me as an outpatient and refer for cardiac MRI at [facility] to assess her pericardium. This will be a useful test in ruling out constriction or restriction. The patient was clinically improved although she remained ill. She was ready for discharge on the a.m. of 04/28/2017. She will be discharged home to follow with me in 2 weeks follow-up with Dr. Houser and Speedy as an outpatient in 1-2 weeks as well. Prescription medications will be ordered for her as she is currently on. Diagnosis - Discharge Diagnosis (1) Pulmonary hypertension Status: Chronic (2) Chronic renal insufficiency, stage IV (severe) Status: Chronic (3) SULLY (obstructive sleep apnea) Status: Chronic (4) Anemia Status: Chronic (5) Hypertension Status: Chronic (6) Chronic kidney disease, stage V Status: Chronic Specialty Discharge - Follow Up or Referrals Follow up with: Eli West MD [Physician] - (Sleep study- May 19 at 7:15 PM. Stop in admissions. No caffeine or naps before study. Take home meds before coming. Bring something in sleep in. Eat before coming.) Meena Madsen DO [Physician] - 2 Weeks Thomas Ruff MD [Physician] - 2 Weeks German Houser MD [Physician] - 1 Month Discharge Plan - Discharge Data Disposition: Disch To Home/Self Care Condition at Discharge: Stable Discharge Diet: advance to your usual diet Activity: resume usual activities as tolerated Hygiene: no restrictions Weight Bearing at Discharge: full weight bearing, weight bear as tolerated Driving: not until seen by doctor Contact your physician if you experience:: fever over 101, Difficulty voiding, Redness or swelling, Nausea/Vomiting, Shortness of breath, Bleeding, pain uncontrolled by pain medications - Discharge Medications New cloNIDine TAB [Catapres Tab] 0.3 mg PO TID #90 tablet Furosemide Tab [Lasix Tab] 40 mg PO DAILY #30 tablet metOLazone [Zaroxolyn] 5 mg PO DAILY #30 tablet Continue Docusate Sodium Cap [Colace Cap] 200 mg PO DAILY amLODIPine [Norvasc] 10 mg PO DAILY Calcium (Carb)/Vit D 600-400 [Caltrate 600 + D] 1 tablet PO DAILY Cetirizine Tab [ZyrTEC Tab] 10 mg PO DAILY Polyethylene Glycol Powder [Miralax] 17 gm PO BID Garlic 1 each PO DAILY Discontinued Minoxidil 2.5 mg PO DAILY Senna Tab [Senokot] 17.2 mg PO DAILY cloNIDine [Clonidine 0.3 mg/24 hr Patch] 1 patch TRANSDERM Q7DAY hydrALAZINE TAB [Apresoline Tab] 50 mg PO BID - Follow Up or Referral Follow Up: Eli West MD [Physician] - (Sleep study- May 19 at 7:15 PM. Stop in admissions. No caffeine or naps before study. Take home meds before coming. Bring something in sleep in. Eat before coming.) - Forms/Instructions Exam - Constitutional Vitals: Period Temp Pulse Resp BP Sys/Benoit Pulse Ox Last 24 Hr 97.9 F-98.8 F 62-98 16-20 113-153/68-89 96-100 General appearance: over weight - Head Head exam: Present: normal inspection - Eye Eye exam: Present: EOMI Pupils: Present: OG - ENT ENT exam: Present: normal exam, other (JVP is estimated to be 8 cm) - Respiratory Respiratory exam: Present: clear to auscultation bilaterally - Cardiovascular Cardiovascular exam: Present: regular rate and rhythm - GI/Abdominal GI/Abdominal exam: Present: normal bowel sounds - Extremities Exam Extremities exam: Present: normal inspection, other (Venous cath site looks good ) - Back Exam Back exam: Present: normal inspection - Neurological Exam Neurological exam: Present: alert, oriented X3 - Psychiatric Psychiatric exam: Present: normal affect, normal mood - Skin Skin exam: Present: normal color, warm, dry Discharge Results Procedures and tests throughout hospitalization: Pending Orders 04/25/17 09:00 Occult Blood, Stool Routine 04/25/17 17:38 Cyclic Citrull Peptide Ab Stat 04/25/17 22:01 Myeloperoxidase Antibodies Routine 04/26/17 06:42 ANCA Panel for Vasculitis HCV Ab Scrn w/Reflex to HCV PC 04/27/17 10:07 CL heart Routine Labs on day of discharge: Labs from last 24 hours 04/28/17 04/28/17 04/28/17 11:06 09:53 07:33 POC Glucose 173 H 149 H 96 Aldolase Scl-70 IgG Ab Anti-Centromere IgG Ab 04/27/17 04/27/17 04/27/17 22:40 19:08 15:15 POC Glucose 116 H 154 H 128 H Aldolase Scl-70 IgG Ab Anti-Centromere IgG Ab 04/26/17 04/23/17 06:42 15:18 POC Glucose Aldolase 6.3 Scl-70 IgG Ab 0.3 Anti-Centromere IgG Ab < 0.2 - Imaging and Cardiology Cardiology Procedure: image reviewed by me, report reviewed by me Procedure: CT - chest: report reviewed by me DS: Provider Date of admission: 04/22/17 09:42 Primary care physician: Minerva Greco Attending physician on admission: Meena Madsen DO Consults: 04/22/17 09:42 Consult to Physician [CONS] Routine Comment: CRI Consulting Provider: Thomas Ruff Consulting Provider Notified: Yes When should Consulting Provider be notified: Now Consult to Specialist Group: Nephrology When should Consulting Provider be notified: Now Person Notified: NICANOR Date Notified: 04/22/17 Time Notified: 12:35 Consult to Physician [CONS] Routine Comment: pulmonary hypertension Consulting Provider: German Houser Consulting Provider Notified: Yes When should Consulting Provider be notified: Now Consult to Specialist Group: Pulmonology When should Consulting Provider be notified: Now Person Notified: CAROLE Date Notified: 04/22/17 Time Notified: 12:38 04/22/17 15:40 Consult to Physician [CONS] Routine Comment: hemorrhoids, r/o blood loss Consulting Provider: Cain Garduno Consulting Provider Notified: Yes When should Consulting Provider be notified: Now Consult to Specialist Group: Gastroenterology When should Consulting Provider be notified: Now Person Notified: CARI Date Notified: 04/23/17 Time Notified: 09:30 04/22/17 18:10 Consult to Physician [CONS] Routine Comment: Question of lupus, pt with pulmonary hypertension Consulting Provider: Nico Fontaine Consulting Provider Notified: Yes When should Consulting Provider be notified: Now Consult to Specialist Group: Rheumatology When should Consulting Provider be notified: In am Person Notified: LILY Date Notified: 04/23/17 Time Notified: 09:55 04/22/17 18:11 Consult to Sleep Center [CONS] Routine Reason for Sleep Center: Sleep Center Physician Consult Comment: Sleep study in [place] suggests SULLY, pt with PHT 04/25/17 17:05 Consult to Physician [CONS] Routine Comment: Consulting Provider: Felecia Temple Person Notified: Kenneth Date Notified: 04/25/17 Consult Notification Comment: Jessica, nursing shop supervisor spoke with Kenneth regarding consult Discharging clinician: Meena Madsen DO Expected date of discharge: 04/28/17
--- NOTE | 2017-04-28 13:46 | Nephrology Progress Note ---
Nephrology - PN: Subj Interval history: No shortness of breath at rest. She complained of transient weakness earlier this morning. Nurses report her O2 saturation was upper 90s and blood pressure was normal. Exam (PN)-Nephrology - Vital Signs Vital signs: Period Temp Pulse Resp BP Sys/Benoit Pulse Ox Last 24 Hr 97.9 F-98.8 F 62-68 16-20 142-153/68-84 96-100 Exam: Gen.: Alert and oriented x3. ENT: Pupils equal round reactive to light. EOMs intact. Mucous membranes moist. Neck: Supple. No JVD or bruit. Cardiovascular: Regular rate and rhythm. No murmur rub or gallop Lungs: Clear Abdomen: Soft. Nontender. Positive bowel sounds. No organomegaly Extremities: 1+ edema - Lab 04/27/17 09:58 04/27/17 06:30 Most recent lab results Calcium 8.6 MG/DL (8.5-10.1) 04/27/17 06:30 Magnesium 2.5 MG/DL (1.8-2.4) H 04/27/17 09:59 Assessment and Plan (1) Chronic kidney disease, stage V Status: Chronic Assessment and plan: 66-year-old woman with: * CRF stage V. She has near ESRD. I discussed dialysis options with her. She agrees to meet with the dialysis education nurse. Once she has chosen any modality, access will be placed. She does not have pulmonary edema. * Renal cell carcinoma. Status post cryoablation 2013. She states MRI at [facility] last month was negative * Pulmonary hypertension. Not as severe as initially thought * Anemia. Post transfusion * Hypertension. Controlled Current Visit: Yes (2) Anemia Status: Chronic Current Visit: Yes Qualifiers: Chronic kidney disease stage: stage 5, not on chronic dialysis (3) Chest pain Status: Acute Current Visit: Yes (4) Hypertension Status: Chronic Current Visit: Yes Qualifiers: Hypertension type: essential hypertension Qualified Code(s): I10 - Essential (primary) hypertension (5) Pulmonary hypertension Status: Chronic Current Visit: Yes (6) SULLY (obstructive sleep apnea) Status: Chronic Current Visit: Yes Specialty Discharge - Follow Up or Referrals Follow up with: German Houser MD [Physician] - 1 Month Eli West MD [Physician] - (Sleep study- May 19 at 7:15 PM. Stop in admissions. No caffeine or naps before study. Take home meds before coming. Bring something in sleep in. Eat before coming.) Thomas Ruff MD [Physician] - 2 Weeks Meena Madsen DO [Physician] - 2 Weeks
[2017-04-28 14:55] LABS: Myeloperoxidase Antibody < 0.2 U
[2017-04-29 11:23] LABS: c-ANCA Negative (Negative); p-ANCA Negative (Negative)
== END 2017-04-28 16:00 | disposition home or self-care (01) | DRG 287 ==
LOC: N.4E → OBSVTOIN 09:42
PROVIDERS: ADMIT Internal Medicine Cardiovascular Disease; ATTEND Internal Medicine Cardiovascular Disease

== ENCOUNTER 2020-08-03 17:10 | Observation (INO) ==
[2020-08-03 18:37] LABS: Basophils % 0.1 % (0.0-0.8); Eosinophils # 0.1 10*3/uL (0.0-0.87); Eosinophils % 0.8 % (0.00-10.9); Hematocrit 36.5 VOL% (35.7-47.0); Hemoglobin 11.8 GM/DL (12.0-16.0); Immature Granulocytes % 0.5 %; Immature Granulocytes Absolute 0.08 #; Lymphocytes # 0.6 10*3/uL (1.4-4.0); Lymphocytes % 3.7 % (21.3-54.2); Mean Corpuscular HGB Conc 32.3 GM/DL (32-36); Mean Corpuscular Volume 91.7 FL (87-102); Mean Platelet Volume 9.1 FL (9.6-12.0); Monocytes % 8.9 % (1.7-12.7); Platelet Count 297 T/CUMM (130-400); Red Blood Count 3.98 MC/CUMM (3.8-5.5); Red Cell Distribution Width 13.7 % (9.3-17.3); White Blood Count 16.8 T/CUMM (4-12)
[2020-08-03 18:48] LABS: Bilirubin,Urine Negative (Negative); Blood, Urine Negative (Negative); Glucose,Urine (UA) Negative (Negative); Ketones,Urine Negative (Negative); Nitrite,Urine Negative (Negative); Protein,Urine 100 MG/DL; RBC,Urine <1 /HPF (0-4); Squamous Epithelial Cell,Urine Occasional /HPF (0-10); Urine Appearance Slightly Hazy (Clear); Urine Color Yellow (Yellow); Urine Specific Gravity 1.015 (1.001-1.035); Urine Urobilinogen < 2.0 EU/DL (0.2-1.0); WBC,Urine 22 /HPF (0-6)
[2020-08-03 18:51] LABS: Alanine Aminotransferase 45 U/L (13-56); Albumin 3.5 G/DL (3.4-5.0); Alkaline Phosphatase 184 U/L (45-117); Aspartate Amino Transferase 32 U/L (0-37); Bilirubin,Total < 0.39 MG/DL (0.2-1.0); Blood Urea Nitrogen 77 MG/DL (7-18); Calcium 8.9 MG/DL (8.5-10.1); Estimated Glom Filtration Rate 5 ML/MIN; Glucose 107 MG/DL (74-106); Osmolality,Calculated 297.7 MOS/KG (273-304); Total Protein 8.8 G/DL (6.4-8.3)
[2020-08-03] MEDS ORDERED: PROMETHAZINE 25 MG/1 ML VIAL IM STA (19:06)
[2020-08-03 19:47] LABS: Eosinophils 1 % (0-10); Lymphocytes 8 % (20-55); Segmented Neutrophils 79 % (50-85); Total Cells Counted 100
[2020-08-03] MEDS ORDERED: LEVOFLOXACIN INJ 750 MG in PREMIX 1 EACH IV STA (20:03)
[2020-08-03] MEDS ORDERED: ACETAMINOPHEN 325 MG TABLET PO PRN (20:49)
[2020-08-03] MEDS ORDERED: hydrALAZINE 20 MG/1 ML VIAL IV PRN (20:49)
[2020-08-03] MEDS ORDERED: ONDANSETRON 4 MG/2 ML VIAL IV PRN (20:49)
[2020-08-03] MEDS ORDERED: PROMETHAZINE 25 MG/1 ML VIAL IM PRN (20:49)
[2020-08-03] MEDS ORDERED: DOCUSATE SODIUM 100 MG CAPSULE PO PRN (20:49)
[2020-08-03] MEDS ORDERED: HEPARIN 5,000 UNIT/1 ML VIAL SUBCUT STA (20:54)
[2020-08-03] MEDS ORDERED: MORPHINE 4 MG/1 ML VIAL IV PRN (22:31)
[2020-08-04 05:58] LABS: Basophils % 0.2 % (0.0-0.8); Eosinophils # 0.1 10*3/uL (0.0-0.87); Eosinophils % 1.1 % (0.00-10.9); Hematocrit 31.1 VOL% (35.7-47.0); Hemoglobin 9.8 GM/DL (12.0-16.0); Immature Granulocytes % 0.4 %; Immature Granulocytes Absolute 0.05 #; Lymphocytes # 1.2 10*3/uL (1.4-4.0); Lymphocytes % 9.7 % (21.3-54.2); Mean Corpuscular HGB Conc 31.5 GM/DL (32-36); Mean Corpuscular Volume 93.1 FL (87-102); Mean Platelet Volume 9.7 FL (9.6-12.0); Monocytes % 7.4 % (1.7-12.7); Neutrophils % 81.2 % (38.7-73.9); Platelet Count 240 T/CUMM (130-400); Red Blood Count 3.34 MC/CUMM (3.8-5.5); Red Cell Distribution Width 13.7 % (9.3-17.3); White Blood Count 12.2 T/CUMM (4-12)
[2020-08-04 07:00] LABS: Albumin 2.5 G/DL (3.4-5.0); Bilirubin,Total 0.6 MG/DL (0.2-1.0); Calcium 8.4 MG/DL (8.5-10.1); Osmolality,Calculated 301.5 MOS/KG (273-304); Thyroid Stimulating Hormone 0.708 uIU/ml (0.358-3.74); Total Protein 6.9 G/DL (6.4-8.3)
[2020-08-04 07:54] VITALS: BP 140/74
[2020-08-04] MEDS ORDERED: DICYCLOMINE 10 MG CAPSULE PO SCH (09:00)
[2020-08-04] MEDS ORDERED: CETIRIZINE 10 MG TABLET PO SCH (09:00)
[2020-08-04] MEDS ORDERED: PANTOPRAZOLE 40 MG TABLET PO SCH (09:00)
[2020-08-05] MEDS ORDERED: LEVOFLOXACIN INJ 500 MG in PREMIX 1 EACH IV SCH (21:00)
== END 2020-08-04 10:59 | disposition home or self-care (01) ==
LOC: N.ED 17:10 → INTOOBSV 20:50 → N.EDINP 20:50 → SUATTDRO 20:50 → N.5E 21:39 → N.EDINP 21:41
PROVIDERS: ADMIT Internal Medicine; ATTEND Internal Medicine Nephrology

== ENCOUNTER 2021-04-30 21:29 | Inpatient (IN) ==
[2021-04-30] MEDS ORDERED: ONDANSETRON 4 MG/2 ML VIAL IV STA (21:57)
[2021-04-30 22:46] LABS: Basophils % 0.1 % (0.0-0.8); Eosinophils % 0.3 % (0.00-10.9); Hematocrit 27.7 VOL% (35.7-47.0); Hemoglobin 8.5 GM/DL (12.0-16.0); Immature Granulocytes % 0.8 %; Immature Granulocytes Absolute 0.11 #; Lymphocytes # 1.8 10*3/uL (1.4-4.0); Lymphocytes % 13.1 % (21.3-54.2); Mean Corpuscular HGB Conc 30.7 GM/DL (32-36); Mean Corpuscular Volume 94.2 FL (87-102); Mean Platelet Volume 9.4 FL (9.6-12.0); Monocytes % 11.9 % (1.7-12.7); NRBC # 0.02 10*3/uL; Neutrophils % 73.8 % (38.7-73.9); Platelet Count 297 T/CUMM (130-400); Red Blood Count 2.94 MC/CUMM (3.8-5.5); Red Cell Distribution Width 14.5 % (9.3-17.3); White Blood Count 13.6 T/CUMM (4-12)
[2021-04-30 23:14] LABS: Albumin 2.5 G/DL (3.4-5.0); Bilirubin,Total 0.4 MG/DL (0.20-1.00); Calcium 7.2 MG/DL (8.5-10.1); Osmolality,Calculated 302.7 MOS/KG (273-304); Potassium 3.8 MMOL/L (3.5-5.1); Total Protein 6.1 G/DL (6.4-8.2)
[2021-05-01] MEDS ORDERED: HYDROmorphone 2 MG/1 ML VIAL IV ONE (01:01)
[2021-05-01] MEDS ORDERED: ACETAMINOPHEN 325 MG TABLET PO PRN (02:45)
[2021-05-01] MEDS ORDERED: GLUCAGON 1 MG VIAL IM PRN (02:45)
[2021-05-01] MEDS ORDERED: ONDANSETRON 4 MG/2 ML VIAL IV PRN (02:45)
[2021-05-01] MEDS ORDERED: DEXTROSE 50% 25 GM/50 ML VIAL IV PRN (02:45)
[2021-05-01] MEDS ORDERED: SIMETHICONE CHEW 125 MG TABLET PO PRN (02:45)
[2021-05-01] MEDS ORDERED: MORPHINE 2 MG/1 ML SYRINGE IV PRN (02:45)
[2021-05-01] MEDS ORDERED: LEVOFLOXACIN INJ 500 MG/100 ML PREMIX IV ONE (03:30)
[2021-05-01 04:05] LABS: Bacteria,Urine Occasional /HPF (Few); Bilirubin,Urine Negative (Negative); Blood, Urine Negative (Negative); Glucose,Urine (UA) Negative (Negative); Ketones,Urine 5 mg/dL (Negative); Mucus,Urine Occasional /LPF (Occasional); Nitrite,Urine Negative (Negative); Protein,Urine 100 MG/DL; RBC,Urine <1 /HPF (0-4); Squamous Epithelial Cell,Urine Occasional /HPF (0-10); Urine Appearance CLEAR (Clear); Urine Color Yellow (Yellow); Urine Specific Gravity 1.012 (1.001-1.035); Urine Urobilinogen < 2.0 EU/DL (0.2-1.0)
[2021-05-01] MEDS: diphenhydrAMINE CAP 25 MG CAPSULE PO PRN ×2 (06:01→21:32)
[2021-05-01] MEDS: HEPARIN 5,000 UNIT/1 ML VIAL SUBCUT SCH ×3 (06:02→21:32)
[2021-05-01] MEDS: hydrALAZINE 20 MG/1 ML VIAL IV PRN ×2 (06:06→17:11)
[2021-05-01 07:03] LABS: Basophils % 0.2 % (0.0-0.8); Eosinophils % 0.1 % (0.00-10.9); Hemoglobin 8.5 GM/DL (12.0-16.0); Immature Granulocytes % 0.7 %; Immature Granulocytes Absolute 0.08 #; Lymphocytes # 1.2 10*3/uL (1.4-4.0); Lymphocytes % 10.1 % (21.3-54.2); Mean Corpuscular HGB Conc 30.4 GM/DL (32-36); Mean Corpuscular Volume 94.9 FL (87-102); Mean Platelet Volume 9.6 FL (9.6-12.0); Neutrophils % 78.9 % (38.7-73.9); Platelet Count 290 T/CUMM (130-400); Red Blood Count 2.95 MC/CUMM (3.8-5.5); Red Cell Distribution Width 14.6 % (9.3-17.3); White Blood Count 11.4 T/CUMM (4-12)
[2021-05-01 07:20] LABS: Calcium 7.9 MG/DL (8.5-10.1)
[2021-05-01] MEDS: DOCUSATE SODIUM 100 MG CAPSULE PO SCH ×2 (09:10→20:35)
[2021-05-01] MEDS: PANTOPRAZOLE 40 MG TABLET PO SCH (09:10)
[2021-05-01] MEDS ORDERED: MOISTURIZING CREAM (EUCERIN) 106 GM JAR TOP PRN (10:18)
[2021-05-01] MEDS ORDERED: HEPARIN 10,000 UNIT/10 ML VIAL INTRAPERIT ONE (14:00)
[2021-05-01] MEDS ORDERED: VANCOMYCIN 1,000 MG VIAL INTRAPERIT ONE (14:00)
[2021-05-01] MEDS ORDERED: GENTAMICIN 80 MG/2 ML VIAL INTRAPERIT ONE (14:00)
[2021-05-01] MEDS ORDERED: diphenhydrAMINE 2% CREAM 28 GM TUBE TOP PRN (14:11)
[2021-05-02] MEDS: diphenhydrAMINE CAP 25 MG CAPSULE PO PRN (03:37)
[2021-05-02] MEDS ORDERED: DEXAMETHASONE 4 MG/1 ML VIAL IM ONE (04:42)
[2021-05-02] MEDS: HEPARIN 5,000 UNIT/1 ML VIAL SUBCUT SCH ×3 (05:56→21:49)
[2021-05-02] MEDS: hydrALAZINE 20 MG/1 ML VIAL IV PRN ×3 (06:31→23:10)
[2021-05-02] MEDS: PANTOPRAZOLE 40 MG TABLET PO SCH (08:15)
[2021-05-02] MEDS: DOCUSATE SODIUM 100 MG CAPSULE PO SCH ×2 (08:15→20:40)
[2021-05-02] MEDS ORDERED: DEXAMETHASONE 0.5 MG TABLET PO SCH (11:00)
[2021-05-02] MEDS: DEXAMETHASONE 4 MG TABLET PO SCH (12:40)
[2021-05-02] MEDS: GABAPENTIN 100 MG CAPSULE PO SCH ×2 (14:06→20:40)
[2021-05-02] MEDS ORDERED: ASPIRIN 325 MG TABLET ONE (14:52)
[2021-05-02] MEDS ORDERED: NITROGLYCERIN SL 0.4 MG TABLET SL ONE (14:53)
[2021-05-02] MEDS ORDERED: GENTAMICIN 80 MG/2 ML VIAL INTRAPERIT SCH ×2 (21:00→22:00)
[2021-05-02] MEDS ORDERED: VANCOMYCIN 1,000 MG VIAL INTRAPERIT SCH (21:00)
[2021-05-02] MEDS ORDERED: HEPARIN 10,000 UNIT/10 ML VIAL INTRAPERIT SCH (21:00)
[2021-05-03] MEDS ORDERED: LEVOFLOXACIN INJ 250 MG/50 ML PREMIX IV SCH (03:30)
[2021-05-03 05:16] LABS: Basophils % 0.1 % (0.0-0.8); Hemoglobin 8.6 GM/DL (12.0-16.0); Immature Granulocytes % 0.9 %; Immature Granulocytes Absolute 0.07 #; Lymphocytes # 1.3 10*3/uL (1.4-4.0); Lymphocytes % 16.4 % (21.3-54.2); Mean Corpuscular HGB Conc 30.7 GM/DL (32-36); Mean Corpuscular Volume 92.7 FL (87-102); Mean Platelet Volume 9.4 FL (9.6-12.0); Monocytes % 10.3 % (1.7-12.7); NRBC # 0.04 10*3/uL; Neutrophils % 72.3 % (38.7-73.9); Platelet Count 316 T/CUMM (130-400); Red Blood Count 3.02 MC/CUMM (3.8-5.5); Red Cell Distribution Width 14.3 % (9.3-17.3); White Blood Count 8.2 T/CUMM (4-12)
[2021-05-03 05:31] LABS: Calcium 8.1 MG/DL (8.5-10.1); Osmolality,Calculated 294.1 MOS/KG (273-304); Potassium 3.4 MMOL/L (3.5-5.1)
[2021-05-03] MEDS: HEPARIN 5,000 UNIT/1 ML VIAL SUBCUT SCH ×2 (06:05→14:13)
[2021-05-03] MEDS: DEXAMETHASONE 4 MG TABLET PO SCH (08:22)
[2021-05-03] MEDS: DOCUSATE SODIUM 100 MG CAPSULE PO SCH (08:22)
[2021-05-03] MEDS: GABAPENTIN 100 MG CAPSULE PO SCH ×2 (08:22→14:13)
[2021-05-03] MEDS: PANTOPRAZOLE 40 MG TABLET PO SCH (08:22)
[2021-05-03 12:17] VITALS: BP 180/99
[2021-05-03] MEDS: hydrALAZINE 20 MG/1 ML VIAL IV PRN (12:25)
== END 2021-05-03 15:05 | disposition home or self-care (01) | DRG 867 ==
LOC: N.EDINP 21:29 → N.ED 21:29 → SUATTDRO 05-01 02:45 → N.EDINP 05-01 05:00 → N.3E 05-01 05:27
PROVIDERS: ADMIT Internal Medicine; ATTEND Hospitalist